=== PATIENT | female | born 1965 | race Caucasian/White ===

== ENCOUNTER 2016-02-27 12:01 | Emergency (ER) | payer SELFPAY ==
[2016-02-27 12:37] LABS: ABSOLUTE BASOPHILS # (AUTO) 0.1 10^3/uL (0.0-0.2); ABSOLUTE EOSINOPHILS # (AUTO) 0.1 10^3/uL (0.0-0.6); ABSOLUTE LYMPHOCYTES (AUTO) 3.3 10^3/uL (0.5-4.7); ABSOLUTE MONOCYTES (AUTO) 0.6 10^3/uL (0.1-1.4); ABSOLUTE NEUT (AUTO) 7.6 10^3/uL (1.7-8.2); BASOPHILS % (AUTO) 0.5 % (0-2); EOSINOPHILS % (AUTO) 0.8 % (0-6); HEMATOCRIT 42.2 % (36.0-47.0); HEMOGLOBIN 14.5 g/dL (12.0-15.5); HGB HCT DIFFERENCE 1.3; LYMPHOCYTES % (AUTO) 28.3 % (13-45); MEAN CORPUSCULAR HEMOGLOBIN 30.1 pg (27.0-33.4); MEAN CORPUSCULAR HGB CONC 34.3 g/dL (32.0-36.0); MEAN CORPUSCULAR VOLUME 88 fl (80-97); MONOCYTES % (AUTO) 4.9 % (3-13); RED BLOOD COUNT 4.81 10^6/uL (3.72-5.28); RED CELL DISTRIBUTION WIDTH 12.8 % (11.5-14.0); SEGMENTED NEUTROPHILS % (AUTO) 65.5 % (42-78); WHITE BLOOD COUNT 11.6 10^3/uL (4.0-10.5)
[2016-02-27 12:59] LABS: ALANINE AMINOTRANSFERASE 32 U/L (9-52); ALBUMIN 3.8 g/dL (3.5-5.0); ALKALINE PHOSPHATASE 90 U/L (38-126); ANION GAP 14 (5-19); ASPARTATE AMINO TRANSFERASE 19 U/L (14-36); BILIRUBIN,TOTAL 0.6 mg/dL (0.2-1.3); BLOOD UREA NITROGEN 7 mg/dL (7-20); CALCIUM 9.3 mg/dL (8.4-10.2); CARBON DIOXIDE 18 mmol/L (22-30); CHLORIDE 107 mmol/L (98-107); CREATININE RESULT 0.78 mg/dL (0.52-1.25); GLUCOSE 119 mg/dL (75-110); POTASSIUM 4.1 mmol/L (3.6-5.0); SODIUM 138.7 mmol/L (137-145); TOTAL PROTEIN 7.2 g/dL (6.3-8.2)
[2016-02-27 13:05] LABS: ALCOHOL < 10 mg/dL (NONE DETECTED)
--- NOTE | 2016-02-27 13:13 | EKG REPORT ---
SEVERITY:- NORMAL ECG - SINUS RHYTHM : Confirmed by: Marino Peters 27-Feb-2016 13:12:54
[2016-02-27 15:02] LABS: APPEARANCE,URINE SLIGHTLY HAZY; BACTERIA,URINE 2+ /HPF; BILIRUBIN,URINE NEGATIVE (NEGATIVE); GLUCOSE, URINE NEGATIVE (NEGATIVE); KETONES,URINE 25 mg/dL (NEGATIVE); LEUKOCYTE ESTERASE,URINE NEGATIVE (NEGATIVE); NITRITE,URINE NEGATIVE (NEGATIVE); PROTEIN,URINE 100 mg/dL (NEGATIVE); RBC,URINE 0-1 /HPF; URINE SPECIFIC GRAVITY 1.019; UROBILINOGEN,URINE NEGATIVE mg/dL (<2.0)
[2016-02-27 15:16] LABS: URINE BARBITURATES SCREEN NEGATIVE; URINE METHADONE SCREEN NEGATIVE; URINE PHENCYCLIDINE SCREEN NEGATIVE
[2016-02-27] MEDS ORDERED: LORAZEPAM INJ 2 MG/1 ML VIAL IV ONE (17:27)
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
[2016-02-27] MEDS: BUSPIRONE HCL 10 MG TABLET PO SCH (22:30)
[2016-02-28] MEDS ORDERED: LORAZEPAM 0.5 MG TABLET PO ONE (06:16)
[2016-02-28] MEDS: GABAPENTIN 300 MG CAPSULE PO SCH ×3 (09:11→17:25)
[2016-02-28] MEDS: LEVETIRACETAM 500 MG TABLET PO SCH ×2 (09:11→17:25)
--- NOTE | 2016-02-28 16:28 | ER Document Report ---
Doctor's Note Notes: 02/28/16 16:24 Rounds: Chart reviewed and patient interviewed. Being evaluated for BiPolar disorder and suicidal ideation. Vital signs have been normal except for a slightly low blood pressure of 99/61 and 106/76. Not tachycardic. Labs stable , + marijuana on UDS, WBC 11,600. Patient had ultrasound of breast mass and looks like cancer. Patient aware. Trying to get set up for biopsy and follow up care. Will remain overnight for stabilization of meds. Patient appears to be medically stable for transfer or discharge. Priti Mark MD
[2016-02-28] MEDS: BUSPIRONE HCL 10 MG TABLET PO SCH (21:52)
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
--- NOTE | 2016-02-29 08:57 | PSYCHOLOGICAL NOTE ---
Psych Note - Psych Note Psych Note: Clinician conducted check in with patient. Patient states that she is feeling better. Patient demonstrates interest in her medical care by discussing upcoming appointment scheduled for today at noon. She is able to communicate possible anxiety about addressing the lump found during her mammogram in July. Patient has put off addressing the findings however will be addressing them today. Patient denies suicidal homicidal ideation, and feels safe to go home. 296.90 Unspecified bipolar and related disorder, per history Impression\plan: Patient is recommended for recent of IVC and is considered psychiatrically cleared for discharge. Patient denies suicidal and homicidal ideation. Patient is established client of [facility] and has an appointment on the . Patient has follow-up appointment today at noon at the care clinic to address concerns identified in a July mammogram. Patient is psychiatrically cleared for discharge attending physician is in agreement with recommendations and disposition.
[2016-02-29] MEDS: LEVETIRACETAM 500 MG TABLET PO SCH (09:44)
[2016-02-29] MEDS: GABAPENTIN 300 MG CAPSULE PO SCH (09:44)
[2016-02-29 11:55] VITALS: BP 120/76
--- NOTE | 2016-02-29 12:02 | ER Document Report ---
Doctor's Note Notes: 02/29/16 12:00 Rounds: Chart reviewed and patient interviewed. Vital signs have remained stable with her blood pressure now in the low 100s systolic. Other vital signs are normal. No new labs to report. Patient is feeling much better and feels ready to go home. She has an appointment for follow-up at [facility] on March 05. I 'm writing her prescriptions for Neurontin, BuSpar, and Keppra for 5 days. She has an appointment at noon today At [facility] to arrange for further investigation and care of what looks like a likely cancer of the breast. Patient is aware of this likely diagnosis and the need for her to follow-up as recommended. She is being discharged stable with her . Priti Mark M.D.
== END 2016-02-29 11:55 | disposition home or self-care (01) ==
LOC: ER 12:01
DX: N63 Unspecified lump in breast (principal); F31.9 Bipolar disorder, unspecified; R45.851 Suicidal ideations; F17.210 Nicotine dependence, cigarettes, uncomplicated; E78.00 Pure hypercholesterolemia, unspecified
CPT/HCPCS: 93005; 99285; 96374; 36415; 80307 ×4; 84703; 85025; 80053; 81001; 76641; 70460; 93010; J2060

== ENCOUNTER → 2016-03-13 | Outpatient (CLI) | payer SELFPAY | LOC: RAD 06:45 | PROVIDERS: ATTEND Surgery | DX: C50.911 Malignant neoplasm of unspecified site of right female breast (principal) | CPT/HCPCS: A9576; C8906; 77059 ==

== ENCOUNTER → 2016-03-19 | Outpatient (CLI) | payer SELFPAY ==
--- NOTE | 2016-03-19 17:20 | WOMENS IMAGING REPORT ---
EXAM DESCRIPTION: BILAT DIAGNOSTIC MAMMO W/CAD COMPLETED DATE/TIME: 03/19/2016 9:09 am REASON FOR STUDY: C50.911 C50.911 MALIGNANT NEOPLASM OF UNSP SITE OF RIGHT FEMALE [place] COMPARISON: Bilateral breast MRI 03/13/2016 Right breast ultrasound 02/27/2016 Bilateral screening mammogram 07/31/2015 TECHNIQUE: Standard craniocaudal and mediolateral oblique views of each breast recorded using digita l acquisition. Additional right breast compression magnification views of the mass in the right breast 6 o'clock pos ition. LIMITATIONS: None. FINDINGS: RIGHT BREAST MASSES: There is a known malignant 1.4 cm mass in the right breast 6 o'clock position. On today's ex am, spiculated margins and architectural distortion are again seen. There is a biopsy clip in the vt ss. CALCIFICATIONS: No new or suspicious calcifications. ARCHITECTURAL DISTORTION: None. DEVELOPING DENSITY: None. ASYMMETRY: None noted. OTHER: No other significant findings. LEFT BREAST MASSES: No suspicious masses. CALCIFICATIONS: No new or suspicious calcifications. ARCHITECTURAL DISTORTION: None. DEVELOPING DENSITY: None. ASYMMETRY: None noted. OTHER: No other significant finding. Read with the assistance of CAD: .[facility] - R2 Cenova Version 1.3 .[facility] - R2 Cenova Version 1.3 .[facility] - R2 Cenova Version 2.4 .[facility] - R2 Cenova Version 2.4 .[facility] - R2 Clinical Support Associate Version 9.2 BREAST DENSITY: b. There are scattered areas of fibroglandular density. BIRAD: 6 Known biopsy-proven malignancy. Appropriate action should be taken. RECOMMENDATION: RECOMMENDED FOLLOW UP: As per surgeon SPECIFIC INTERVENTION/IMAGING/CONSULTATION RECOMMENDED:No additional intervention/ imaging/consultati on needed at this time. COMMUNICATION:The negative/benign results were communicated to the patient. COMMENT: PATIENT NOTIFIED BY LETTER. The [employer] (ACR) has developed recommendations for screening MRI of the breast s in certain patient populations, to be used in conjunction with mammography. Breast MRI surveillanc e may be appropriate for women with more than 20% lifetime risk of developing breast cancer as deter mined by genetic testing, significant family history of the disease, or history of mantle radiation f or Hodgkins Disease. ACR Practice Guidelines 2008. TECHNICAL DOCUMENTATION: FINDING NUMBER: (1) ASSESSMENT: (1) JOB ID: [id number] [employer]- All Rights Reserved
== END ==
LOC: WI 08:38
PROVIDERS: ATTEND Surgery
DX: C50.911 Malignant neoplasm of unspecified site of right female breast (principal)
CPT/HCPCS: 77066; G0204

== ENCOUNTER 2016-04-09 08:19 | Day surgery (SDC) | payer SELFPAY ==
[2016-04-02 12:45] LABS: HEMATOCRIT 43.1 % (36.0-47.0); HEMOGLOBIN 14.7 g/dL (12.0-15.5); MEAN CORPUSCULAR HEMOGLOBIN 30.6 pg (27.0-33.4); MEAN CORPUSCULAR VOLUME 90 fl (80-97); RED CELL DISTRIBUTION WIDTH 13.4 % (11.5-14.0); WHITE BLOOD COUNT 10.4 10^3/uL (4.0-10.5)
[2016-04-02 13:09] LABS: ANION GAP 15 (5-19); BLOOD UREA NITROGEN 14 mg/dL (7-20); CARBON DIOXIDE 23 mmol/L (22-30); CHLORIDE 106 mmol/L (98-107); CREATININE RESULT 0.81 mg/dL (0.52-1.25); GLUCOSE 117 mg/dL (75-110); POTASSIUM 4.5 mmol/L (3.6-5.0); SODIUM 143.9 mmol/L (137-145)
[~2016-04-09 08:19] MED LIST: LACTATED RINGERS 1000 ML IV PRN; LIDOCAINE 0.5% INJ-PF (5 MG/ML) 50 ML SDV SUBCUT PRN; LIDOCAINE 4% TRANSPARENT DRESSING 5 GM KIT TP PRN; VANCOMYCIN HCL 1,000 MG in DEXTROSE 5%-WATER 250 ML IV PRN
[2016-04-09] MEDS ORDERED: LIDOCAINE 2% INJ-PF (20 MG/ML) 10 ML AMPUL ONE ×2 (10:27→10:40)
[2016-04-09] MEDS ORDERED: METOCLOPRAMIDE HCL INJ/PF 10 MG/2 ML SDV ONE ×2 (10:27→10:40)
[2016-04-09] MEDS ORDERED: GLYCOPYRROLATE INJ 0.4 MG/2 ML VIAL ONE ×2 (10:27→10:40)
[2016-04-09] MEDS ORDERED: SUCCINYLCHOLINE CHLORIDE INJ 200 MG/10 ML VIAL ONE ×3 (10:27→10:40)
[2016-04-09] MEDS ORDERED: ONDANSETRON HCL INJ/PF 4 MG/2 ML SDV ONE ×2 (10:27→10:40)
[2016-04-09] MEDS ORDERED: ROCURONIUM BROMIDE INJ 50 MG/5 ML VIAL IV ONE (10:40)
[2016-04-09] MEDS ORDERED: METHYLENE BLUE INJ/PF 10 MG/1 ML SDV ONE (12:30)
[2016-04-09] MEDS ORDERED: BUPIVACAINE HCL 0.25 % INJ/PF (2.5 MG/1 ML) 30 ML VIAL ONE (12:30)
[2016-04-09] MEDS ORDERED: MIDAZOLAM 2 MG/2 ML INJ ONE (13:45)
[2016-04-09] MEDS ORDERED: FENTANYL CITRATE INJ/PF 250 MCG/5 ML AMPULE ONE (13:45)
[2016-04-09] MEDS ORDERED: MORPHINE SULFATE 10 MG/ML INJ ONE (13:46)
[2016-04-09] MEDS ORDERED: PROPOFOL INJ 200 MG/20 ML VIAL IV ONE (13:46)
[2016-04-09] MEDS ORDERED: ACETAMINOPHEN 100 ML IV ONE (13:46)
[2016-04-09] MEDS ORDERED: MORPHINE SULFATE 10 MG/ML INJ IV PRN (15:29)
[2016-04-09] MEDS ORDERED: PROMETHAZINE HCL INJ 25 MG/1 ML VIAL IV PRN ×2 (15:29)
[2016-04-09] MEDS ORDERED: DIPHENHYDRAMINE HCL 50 MG/ML VIAL IV PRN (15:29)
[2016-04-09] MEDS ORDERED: MEPERIDINE HCL/PF INJ 25 MG/1 ML DISP.SYRIN IV PRN (15:29)
[2016-04-09] MEDS ORDERED: FENTANYL CITRATE INJ/PF 100 MCG/2 ML AMPUL IV PRN ×3 (15:29)
[2016-04-09] MEDS ORDERED: OXYCODONE-ACETAMINOPHEN 5-325 MG TABLET PO PRN ×2 (15:29)
--- NOTE | 2016-04-09 16:42 | Operative Report ---
Operative Report DATE OF SURGERY: 04/09/16 PREOPERATIVE DIAGNOSIS: Right breast cancer POSTOPERATIVE DIAGNOSIS: Right breast cancer OPERATION: Right axillary sentinel node biopsy, injection of blue dye for identification of right axillary sentinel node, right breast wide local excision for malignancy. SURGEON: CAPRICE CHILDERS ANESTHESIA: GA TISSUE REMOVED OR ALTERED: Right axillary sentinel nodes 3. Right breast wide local excision COMPLICATIONS: None ESTIMATED BLOOD LOSS: 100 mL INTRAOPERATIVE FINDINGS: One hot and blue axillary sentinel node. One semi-hot and semi-blue axillary sentinel node. One semi-hot non-blue axillary sentinel node. All nodes negative by touch prep. 2 cm mass at the 6 o'clock position of the patient's right breast. PROCEDURE: Informed consent was obtained. Patient was brought to the operating room placed on the operating table in supine position after saturation induction of general anesthesia patient's right breast was prepped and the 3 mL of blue dye was injected at the periareolar location of the patient's right breast and breast massage was performed for 5 minutes. Prior to arrival to the operating room patient had the radionucleotide injection for identification of sentinel node. Patient's right breast and axilla were prepped and draped in usual sterile fashion. A transverse incision was made at the axillary hairline and dissection was carried down entering the true axilla. Using combination of visualization and the neoprobe 3 nodes were identified. The first node appeared the semi-hot and semi-blue with an in vivo count of 1662 and ex vivo count of 786. The second node which appeared extremely small had an ex vivo count of 3332 and it was not blue. The last node was hot and blue with an in vivo count of 83,089 and ex vivo count of 76,944. After this node was harvested the background count in the axilla was only 90. Palpation revealed no enlarged nodes of the third than the third sentinel node that was hot and blue and was enlarged. All of these nodes were submitted to pathology touch prep was negative for malignancy. Hemostasis appeared excellent. The wound was closed at the end of the case using deep dermal Vicryl sutures followed by running subcuticular Prolene pullout suture. Instrument and gloves were changed. At the infra areolar region of the patient' s right mid breast, a narrow ellipse of skin was taken encompassing prior biopsy skin scar with the underlying mass at the 6 o'clock position. Wide local excision was performed with the attempt at least 2 cm margins circumferentially around the the approximately 2 cm mass. The specimen was oriented with a short stitch marking the superior border long stitch marking the lateral border. Hemostasis was achieved with electrocautery. Hemostasis appeared excellent. Wound was closed with deep dermal interrupted Vicryl sutures followed by running subcuticular Prolene pullout suture. Marcaine was injected at the operative sites patient tolerated procedure well with no apparent complications and was taken to the recovery area in stable condition.
[2016-04-09] MEDS ORDERED: ONDANSETRON HCL INJ/PF 4 MG/2 ML SDV IV PRN (16:43)
[2016-04-09] MEDS ORDERED: DEXTROSE 5%-1/2 NORMAL SALINE 1,000 ML IV PRN (16:43)
[2016-04-09] MEDS ORDERED: DIPHENHYDRAMINE HCL 25 MG CAPSULE PO PRN (16:46)
[2016-04-09] MEDS ORDERED: GABAPENTIN 300 MG CAPSULE PO SCH (18:00)
[2016-04-09] MEDS ORDERED: LEVETIRACETAM 500 MG TABLET PO SCH (18:00)
[2016-04-09] MEDS ORDERED: INFLUENZA ADLT QUAD (36MOS+) 2016-17 VAC 0.5 ML SYR IM PRN (18:44)
[2016-04-09] MEDS ORDERED: BUSPIRONE HCL 10 MG TABLET PO SCH (22:00)
[2016-04-10] MEDS: OXYCODONE-ACETAMINOPHEN 5-325 MG TABLET PO PRN ×2 (00:46→08:32)
--- NOTE | 2016-04-10 09:19 | PDOC DISCHARGE SUMMARY ---
Discharge Summary (SDC) - Discharge Final Diagnosis: Right breast cancer Date of Surgery: 04/09/16 Discharge Date: 04/10/16 Condition: Good Treatment or Instructions: Wide local excision of breast cancer, right axillary sentinel node biopsy. May discharge the patient home. Follow-up with me in 1 week. May shower tomorrow night. Keep Steri-Strips on. Stay active but avoid strenuous activity. Prescriptions: Oxycodone HCl/Acetaminophen [Percocet 5-325 mg Tablet] 1 tab PO ASDIR PRN #30 tablet PRN Reason: Discharge Diet: As Tolerated Discharge Activity: Activity As Tolerated - Stay active but avoid strenuous activity. Report the Following to Your Physician Immediately: Fever over 101 Degrees, Unusual Bleeding, Redness
--- NOTE | 2016-04-10 09:21 | PDOC PROGRESS REPORT ---
Subjective Progress Note for:: 04/10/16 Subjective:: Feels okay. Some pain. Physical Exam Vital Signs: Temp Pulse Resp BP Pulse Ox 97.9 F 71 19 116/59 L 100 04/10/16 08:16 04/10/16 08:16 04/10/16 08:16 04/10/16 08:16 04/10/16 08:16 Intake & Output 04/09/16 04/10/16 04/11/16 06:59 06:59 06:59 Intake Total 2800 Output Total 19 Balance 2781 Weight 97.7 kg General appearance: PRESENT: no acute distress Respiratory exam: PRESENT: clear to auscultation deb, other - Breast wounds are clean dry and intact. No swelling no bruising. No erythema, no right arm swelling Cardiovascular exam: PRESENT: RRR Results Laboratory Results: 04/02/16 11:48 04/02/16 11:48 Impressions: Lymph Scan Nuclear Medicine 04/09/16 10:15 IMPRESSION: ADMINISTRATION OF RADIOPHARMACEUTICAL FOR SENTINEL LYMPH NODE EVALUATION. Assessment & Plan - Diagnosis (1) Breast cancer, right Is this a current diagnosis for this admission?: YesPlan: Status post wide local excision and sentinel node biopsy. Patient doing well. Will discharge patient home. Follow-up with me next week.
[2016-04-10 11:20] VITALS: BP 117/52
== END 2016-04-10 11:45 | disposition home or self-care (01) ==
LOC: OROUT 08:19 → 5 17:52 → OROUT 04-10 11:45
PROVIDERS: ATTEND Surgery
PROC: 07B50ZX Excision of Right Axillary Lymphatic, Open Approach, Diagnostic (ICD-10-PCS; 2016-04-09)
PROC: 0HBT0ZZ Excision of Right Breast, Open Approach (ICD-10-PCS; principal; 2016-04-09 12:45)
DX: C50.911 Malignant neoplasm of unspecified site of right female breast (principal); C77.3 Secondary and unspecified malignant neoplasm of axilla and upper limb lymph nodes; Z17.0 Estrogen receptor positive status [ER+]; M47.816 Spondylosis without myelopathy or radiculopathy, lumbar region; F31.30 Bipolar disorder, current episode depressed, mild or moderate severity, unspecified; F17.210 Nicotine dependence, cigarettes, uncomplicated; E66.9 Obesity, unspecified; Z88.0 Allergy status to penicillin; Z68.36 Body mass index [BMI] 36.0-36.9, adult; Z79.899 Other long term (current) drug therapy
CPT/HCPCS: 36415; 85027; 81025; 80048; 88342 ×2; 88307 ×2; 78195; 90686; 19301; 38500; 90471; A9520; J2250; J3490 ×3; J3010; Q9968; J2765; J2270; J0330; J2405; J7060; J2704; J3370; J0131; 1610

== ENCOUNTER → 2016-05-01 | Outpatient (CLI) | payer SELFPAY | LOC: OD 15:36 | PROVIDERS: ATTEND Surgery | DX: N64.89 Other specified disorders of breast (principal) | CPT/HCPCS: 87070; 87075; 87205 ==

== ENCOUNTER → 2016-06-13 | Outpatient (CLI) | payer SELFPAY ==
[2016-06-13 15:01] LABS: ABSOLUTE BASOPHILS # (AUTO) 0.1 10^3/uL (0.0-0.2); ABSOLUTE EOSINOPHILS # (AUTO) 0.1 10^3/uL (0.0-0.6); ABSOLUTE LYMPHOCYTES (AUTO) 4.3 10^3/uL (0.5-4.7); ABSOLUTE MONOCYTES (AUTO) 0.7 10^3/uL (0.1-1.4); BASOPHILS % (AUTO) 0.8 % (0-2); EOSINOPHILS % (AUTO) 1.2 % (0-6); HEMATOCRIT 39.7 % (36.0-47.0); HEMOGLOBIN 13.5 g/dL (12.0-15.5); HGB HCT DIFFERENCE 0.8; LYMPHOCYTES % (AUTO) 42.3 % (13-45); MEAN CORPUSCULAR HEMOGLOBIN 30.7 pg (27.0-33.4); MEAN CORPUSCULAR HGB CONC 34.1 g/dL (32.0-36.0); MEAN CORPUSCULAR VOLUME 90 fl (80-97); MONOCYTES % (AUTO) 6.4 % (3-13); RED BLOOD COUNT 4.41 10^6/uL (3.72-5.28); RED CELL DISTRIBUTION WIDTH 13.3 % (11.5-14.0); SEGMENTED NEUTROPHILS % (AUTO) 49.3 % (42-78); WHITE BLOOD COUNT 10.1 10^3/uL (4.0-10.5)
[2016-06-13 15:18] LABS: ALANINE AMINOTRANSFERASE 28 U/L (9-52); ALBUMIN 4.3 g/dL (3.5-5.0); ALKALINE PHOSPHATASE 63 U/L (38-126); ASPARTATE AMINO TRANSFERASE 16 U/L (14-36); BILIRUBIN,DIRECT 0.4 mg/dL (0.0-0.4); BILIRUBIN,TOTAL 0.5 mg/dL (0.2-1.3); TOTAL PROTEIN 7.4 g/dL (6.3-8.2)
== END ==
LOC: OD 13:59
PROVIDERS: ATTEND Radiology Radiation Oncology
DX: C50.511 Malignant neoplasm of lower-outer quadrant of right female breast (principal); Z79.899 Other long term (current) drug therapy; Z17.0 Estrogen receptor positive status [ER+]
CPT/HCPCS: 36415; 80076; 85025

== ENCOUNTER 2016-06-28 09:19 | Emergency (ER) | payer SELFPAY ==
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
[2016-06-28 11:24] LABS: APPEARANCE,URINE CLEAR; BILIRUBIN,URINE NEGATIVE (NEGATIVE); GLUCOSE, URINE NEGATIVE (NEGATIVE); KETONES,URINE NEGATIVE (NEGATIVE); LEUKOCYTE ESTERASE,URINE NEGATIVE (NEGATIVE); NITRITE,URINE NEGATIVE (NEGATIVE); PROTEIN,URINE NEGATIVE (NEGATIVE); URINE SPECIFIC GRAVITY 1.018; UROBILINOGEN,URINE NEGATIVE mg/dL (<2.0)
[2016-06-28] MEDS ORDERED: IBUPROFEN 800 MG TABLET PO ONE (11:39)
[2016-06-28 12:17] VITALS: BP 120/77
== END 2016-06-28 12:15 | disposition home or self-care (01) ==
LOC: ER 09:19
DX: S90.01XA Contusion of right ankle, initial encounter (principal); R35.0 Frequency of micturition; R39.15 Urgency of urination; R10.9 Unspecified abdominal pain; R42 Dizziness and giddiness; W20.8XXA Other cause of strike by thrown, projected or falling object, initial encounter; Z88.0 Allergy status to penicillin; E78.00 Pure hypercholesterolemia, unspecified
CPT/HCPCS: 81001; 99283

== ENCOUNTER 2016-06-28 12:42 | Emergency (ER) | payer SELFPAY ==
--- NOTE | 2016-06-28 12:57 | ER Document Report ---
ED General - General Stated Complaint: SUICIDAL IDEATION Notes: Patient is a 50-year-old female with past medical history of prior suicidal ideation and depression who presented originally today for complaints of left ankle pain. She became very agitated when her specific request for Percocet 10 mg tablets was not filled and began threatening to kill herself. Patient continues to state that she is going to commit suicide. She does not have a specific plan. Denies homicidal ideation. She does note that she has a chronic history of bipolar disorder although admits she is not currently on any treatment for this. She has been evaluated in the past for suicidal ideations. She was reevaluated for her acute medical complaint of left ankle pain and x- ray was noted to be normal. She denies any additional ongoing acute medical concerns. TRAVEL OUTSIDE OF THE [place] IN LAST 30 DAYS: No - Related Data Allergies/Adverse Reactions: Penicillins Allergy (Unknown, Verified 03/22/15 11:52) Past Medical History - General Information source: Patient - Social History Smoking Status: Current Every Day Smoker Frequency of alcohol use: None Drug Abuse: Prescription drugs Lives with: Spouse/Significant other Family History: Reviewed & Not Pertinent - Past Medical History Cardiac Medical History: Reports: Hx Hypercholesterolemia Denies: Hx Coronary Artery Disease, Hx Heart Attack, Hx Hypertension Pulmonary Medical History: Reports: Hx Bronchitis - UNSURE Denies: Hx Asthma, Hx COPD - SOB WHEN LYING ON SIDE AND BENDING OVER, HAS A SMOKERS COUGH, Hx Pneumonia, Hx Tuberculosis Neurological Medical History: Denies: Hx Cerebrovascular Accident, Hx Seizures Renal/ Medical History: Reports: Hx Ovarian Cysts - Right-sided. Denies: Hx Peritoneal Dialysis GI Medical History: Reports: Hx Gastroesophageal Reflux Disease Musculoskeltal Medical History: Denies Hx Arthritis Psychiatric Medical History: Reports: Hx Anxiety, Hx Bipolar Disorder, Hx Depression Past Surgical History: Reports: Hx Gynecologic Surgery - ovarian cyst removal, Hx Orthopedic Surgery - back surgery - Immunizations Hx Diphtheria, Pertussis, Tetanus Vaccination: - UNSURE Review of Systems - Review of Systems Notes: Constitutional: Negative for fever. HENT: Negative for sore throat. Eyes: Negative for visual changes. Cardiovascular: Negative for chest pain. Respiratory: Negative for shortness of breath. Gastrointestinal: Negative for abdominal pain, vomiting or diarrhea. Genitourinary: Negative for dysuria. Musculoskeletal: Left ankle pain Skin: Negative for rash. Neurological: Negative for headaches, weakness or numbness. 10 point ROS negative except as marked above and in HPI. Physical Exam - Vital signs Interpretation: Normal Notes: PHYSICAL EXAMINATION: GENERAL: Well-appearing, well-nourished and in no acute distress. HEAD: Atraumatic, normocephalic. EYES: Pupils equal round and reactive to light, extraocular movements intact, sclera anicteric, conjunctiva are normal. ENT: nares patent, oropharynx clear without exudates. Moist mucous membranes. NECK: Normal range of motion, supple without lymphadenopathy LUNGS: Breath sounds clear to auscultation bilaterally and equal. No wheezes rales or rhonchi. HEART: Regular rate and rhythm without murmurs ABDOMEN: Soft, nontender, normoactive bowel sounds. No guarding, no rebound. No masses appreciated. EXTREMITIES: Normal range of motion, no pitting or edema. No cyanosis. NEUROLOGICAL: No focal neurological deficits. Moves all extremities spontaneously and on command. PSYCH: Emotional, tearful. Appears anxious SKIN: Warm, Dry, normal turgor, no rashes or lesions noted. Course - Re-evaluation Re-evalutation: 06/28/16 12:55 Patient continues to threaten that she is going to kill herself although she does not have a specific plan. It appears that patient is having increasing anxiety and potentially uncontrolled underlying bipolar disorder that may be associated with her outbursts here in the emergency department today. However given that she continues to state that she is planning to harm or self she has been placed on involuntary commitment and will be evaluated by psychiatry. Medical screening laboratories have been sent and a medical screening exam is unremarkable 06/28/16 15:17 Medical screening laboratories are unremarkable with exception of a positive THC screen which I do not believe is clinically significant to her presentation today. She is cleared for evaluation by psychiatry. - Laboratory Result Diagrams: 06/28/16 13:35 06/28/16 13:35 Laboratory results interpreted by me: 06/28/16 13:35 Chloride 108 H Carbon Dioxide 21 L Salicylates < 1.0 L Acetaminophen < 10 L Discharge - Discharge Clinical Impression: Suicidal ideation Condition: Stable Referrals: [facility] [Primary Care Provider] - Follow up as needed
[2016-06-28 13:51] LABS: ABSOLUTE BASOPHILS # (AUTO) 0.1 10^3/uL (0.0-0.2); ABSOLUTE EOSINOPHILS # (AUTO) 0.1 10^3/uL (0.0-0.6); ABSOLUTE LYMPHOCYTES (AUTO) 3.1 10^3/uL (0.5-4.7); ABSOLUTE MONOCYTES (AUTO) 0.6 10^3/uL (0.1-1.4); ABSOLUTE NEUT (AUTO) 5.2 10^3/uL (1.7-8.2); BASOPHILS % (AUTO) 0.7 % (0-2); HEMOGLOBIN 13.5 g/dL (12.0-15.5); HGB HCT DIFFERENCE -0.5; LYMPHOCYTES % (AUTO) 34.5 % (13-45); MEAN CORPUSCULAR HEMOGLOBIN 30.2 pg (27.0-33.4); MEAN CORPUSCULAR VOLUME 92 fl (80-97); MONOCYTES % (AUTO) 6.9 % (3-13); RED BLOOD COUNT 4.48 10^6/uL (3.72-5.28); RED CELL DISTRIBUTION WIDTH 12.9 % (11.5-14.0); SEGMENTED NEUTROPHILS % (AUTO) 56.9 % (42-78); WHITE BLOOD COUNT 9.1 10^3/uL (4.0-10.5)
[2016-06-28 13:54] LABS: APPEARANCE,URINE CLEAR; BILIRUBIN,URINE NEGATIVE (NEGATIVE); GLUCOSE, URINE NEGATIVE (NEGATIVE); KETONES,URINE NEGATIVE (NEGATIVE); LEUKOCYTE ESTERASE,URINE NEGATIVE (NEGATIVE); NITRITE,URINE NEGATIVE (NEGATIVE); PROTEIN,URINE NEGATIVE (NEGATIVE); URINE SPECIFIC GRAVITY 1.009; UROBILINOGEN,URINE NEGATIVE mg/dL (<2.0)
[2016-06-28 14:09] LABS: URINE BARBITURATES SCREEN NEGATIVE; URINE METHADONE SCREEN NEGATIVE; URINE OPIATES LOW NEGATIVE; URINE PHENCYCLIDINE SCREEN NEGATIVE
[2016-06-28 14:11] LABS: ALANINE AMINOTRANSFERASE 26 U/L (9-52); ALBUMIN 3.9 g/dL (3.5-5.0); ALKALINE PHOSPHATASE 74 U/L (38-126); ANION GAP 14 (5-19); ASPARTATE AMINO TRANSFERASE 15 U/L (14-36); BILIRUBIN,DIRECT 0.3 mg/dL (0.0-0.4); BILIRUBIN,TOTAL 0.3 mg/dL (0.2-1.3); BLOOD UREA NITROGEN 10 mg/dL (7-20); CALCIUM 9.6 mg/dL (8.4-10.2); CARBON DIOXIDE 21 mmol/L (22-30); CHLORIDE 108 mmol/L (98-107); CREATININE RESULT 0.75 mg/dL (0.52-1.25); GLUCOSE 108 mg/dL (75-110); POTASSIUM 4.2 mmol/L (3.6-5.0); SODIUM 143.2 mmol/L (137-145)
[2016-06-28 14:12] LABS: ALCOHOL < 10 mg/dL (NONE DETECTED)
--- NOTE | 2016-06-28 16:26 | PSYCHOLOGICAL NOTE ---
Psych Note - Psych Note Psych Note: Patient is a 50-year-old female with past medical history of prior suicidal ideation and depression who presented originally today for complaints of left ankle pain. She became very agitated when her specific request for Percocet 10 mg tablets was not filled and began threatening to kill herself. Patient continues to state that she is going to commit suicide. She does not have a specific plan. Denies homicidal ideation. She does note that she has a chronic history of bipolar disorder although admits she is not currently on any treatment for this. She has been evaluated in the past for suicidal ideations. She was reevaluated for her acute medical complaint of left ankle pain and x- ray was noted to be normal. She denies any additional ongoing acute medical concerns. Patient states that she has looking into her prescriptions of Keppra and Gabapentin and she is not on anything for her anxiety, depression, and bipolar. She states she has been forgetting things. Clinician conducted psychoeducation. Patient then stated she needed something for anxiety, when it was explained that an anxiety medications provided by [facility] are normally nonaddictive but the clinician is unable to prescribe any medications because it is outside of her scope of practice. Patient states she has Buspar at home but it is not strong enough. Patient states that [facility] will not change her medication even thought she has asked. Patient was urged to follow up with outpatient services for any concerns for mental health and her current medications. Patient disclosed that he had an "episode" and she was supposed to get a prescription but did not get it. Patient is alert and orientated to person, place, time and circumstance. Mood is euthymic with congruent affect. Patient denies suicidal and homicidal ideation. Patient denies auditory and visual hallucinations; patient is not demonstrating behaviour what would be congruent to responding to internal stimuli. No delusions are noted. Thought process is organized and linear. conversational speech is within normal rate tone and prosody. Eye contact was well maintained. Intellectual abilities appear to be within average range. Attention and concentration is fair. Insight, judgment, and impulse control is fair. 296.90 Unspecified bipolar and related disorder, per history R/O Substance abuse Impression\\plan: Patient is considered psychiatrically cleared for discharge. Patient denies suicidal and homicidal ideation. Patient is established client of [facility]. Patient disclosed multiple concerns that are not acute and demonstrated behaviour congruent with secondary gain. Patient is recommended to follow up [facility] for mental health and a Neurologist with her concerns for memory loss. Patient is psychiatrically cleared for discharge attending physician is in agreement with recommendations and disposition.
[2016-06-28 17:33] VITALS: BP 131/84
--- NOTE | 2016-06-28 18:58 | EKG REPORT ---
SEVERITY:- NORMAL ECG - SINUS RHYTHM : Confirmed by: Erasto Orta MD 28-Jun-2016 18:57:40
== END 2016-06-28 17:34 | disposition home or self-care (01) ==
LOC: ER 12:42
DX: R45.851 Suicidal ideations (principal); F31.9 Bipolar disorder, unspecified; M25.572 Pain in left ankle and joints of left foot; F17.200 Nicotine dependence, unspecified, uncomplicated; F41.9 Anxiety disorder, unspecified; E78.00 Pure hypercholesterolemia, unspecified; Z88.0 Allergy status to penicillin
CPT/HCPCS: 36415; 80053; 80307; 81001; 84703; 85025; 93005; 93010; 99285

== ENCOUNTER → 2016-07-02 | Outpatient (CLI) | payer OTHER | LOC: RAD 10:32 | PROVIDERS: ATTEND Radiology Radiation Oncology | DX: C50.511 Malignant neoplasm of lower-outer quadrant of right female breast (principal); Z17.0 Estrogen receptor positive status [ER+] ==

== ENCOUNTER 2016-08-03 22:56 | Emergency (ER) | payer OTHER ==
[2016-08-04] MEDS ORDERED: DIPHENHYDRAMINE HCL 50 MG CAPSULE PO ONE (01:02)
[2016-08-04 01:13] LABS: APPEARANCE,URINE SLIGHTLY-CLOUDY; BILIRUBIN,URINE NEGATIVE (NEGATIVE); GLUCOSE, URINE NEGATIVE (NEGATIVE); KETONES,URINE NEGATIVE (NEGATIVE); LEUKOCYTE ESTERASE,URINE NEGATIVE (NEGATIVE); NITRITE,URINE NEGATIVE (NEGATIVE); PROTEIN,URINE NEGATIVE (NEGATIVE); URINE SPECIFIC GRAVITY 1.027; UROBILINOGEN,URINE NEGATIVE mg/dL (<2.0)
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
[2016-08-04 02:18] LABS: ABSOLUTE BASOPHILS # (AUTO) 0.1 10^3/uL (0.0-0.2); ABSOLUTE EOSINOPHILS # (AUTO) 0.1 10^3/uL (0.0-0.6); ABSOLUTE LYMPHOCYTES (AUTO) 2.6 10^3/uL (0.5-4.7); ABSOLUTE MONOCYTES (AUTO) 0.5 10^3/uL (0.1-1.4); ABSOLUTE NEUT (AUTO) 4.1 10^3/uL (1.7-8.2); ALANINE AMINOTRANSFERASE 29 U/L (9-52); ALBUMIN 3.6 g/dL (3.5-5.0); ALCOHOL < 10 mg/dL (NONE DETECTED); ALKALINE PHOSPHATASE 61 U/L (38-126); ANION GAP 11 (5-19); ASPARTATE AMINO TRANSFERASE 17 U/L (14-36); BASOPHILS % (AUTO) 0.9 % (0-2); BILIRUBIN,DIRECT 0.3 mg/dL (0.0-0.4); BILIRUBIN,TOTAL 0.3 mg/dL (0.2-1.3); BLOOD UREA NITROGEN 11 mg/dL (7-20); CALCIUM 8.7 mg/dL (8.4-10.2); CARBON DIOXIDE 24 mmol/L (22-30); CHLORIDE 108 mmol/L (98-107); CREATININE RESULT 0.81 mg/dL (0.52-1.25); EOSINOPHILS % (AUTO) 1.9 % (0-6); GLUCOSE 117 mg/dL (75-110); HEMATOCRIT 37.1 % (36.0-47.0); HEMOGLOBIN 12.4 g/dL (12.0-15.5); HGB HCT DIFFERENCE 0.1; LYMPHOCYTES % (AUTO) 35.6 % (13-45); MEAN CORPUSCULAR HEMOGLOBIN 30.4 pg (27.0-33.4); MEAN CORPUSCULAR HGB CONC 33.4 g/dL (32.0-36.0); MEAN CORPUSCULAR VOLUME 91 fl (80-97); MONOCYTES % (AUTO) 6.5 % (3-13); POTASSIUM 3.8 mmol/L (3.6-5.0); RED BLOOD COUNT 4.08 10^6/uL (3.72-5.28); RED CELL DISTRIBUTION WIDTH 13.4 % (11.5-14.0); SEGMENTED NEUTROPHILS % (AUTO) 55.1 % (42-78); SODIUM 142.7 mmol/L (137-145); TOTAL PROTEIN 6.8 g/dL (6.3-8.2); WHITE BLOOD COUNT 7.4 10^3/uL (4.0-10.5)
[2016-08-04 02:25] LABS: URINE BARBITURATES SCREEN NEGATIVE; URINE METHADONE SCREEN NEGATIVE; URINE OPIATES LOW NEGATIVE; URINE PHENCYCLIDINE SCREEN NEGATIVE
--- NOTE | 2016-08-04 12:03 | ER Document Report ---
Doctor's Note Notes: 08/04/16 11:53 Rounds: Chart reviewed. Patient interviewed. Patient says she still feeling suicidal. Has a history of bipolar disorder. Lab studies have all been essentially normal. She is positive for marijuana in her UDS. Vital signs were all normal. Incidental note: Patient had a right mastectomy and subsequent radiation therapy to the right breast. She has developed redness of the skin there on the right breast. This is a chronic problem and she has seen her surgeon, Dr. Nolasco, who has prescribed a medication for the redness of the skin, but they have not been able to fill the prescription yet. Sounds like it may be nystatin. I stressed the point that this is a chronic problem and not new and it is not different than it has been. Patient appears to be medically stable for transfer or discharge. Priti Mark MD
[2016-08-04] MEDS ORDERED: ACETAMINOPHEN 325 MG TABLET PO ONE (20:24)
--- NOTE | 2016-08-04 21:14 | ER Document Report ---
ED Psych Disorder / Suicide - General Mode of Arrival: Ambulatory Information source: Patient, Relative, [facility] Records TRAVEL OUTSIDE OF THE [place] IN LAST 30 DAYS: No - HPI Patient complains to provider of: Suicidal ideation, Other - Out of medications Onset: Other Onset was: Gradual Quality of pain: No pain Severity: None Pain Level: Denies Suicide Risk Factors: Bipolar, Substance abuse Normal mood: Yes Associated symptoms: Normal affect, Normal mood, Depressed Similar symptoms previously: Yes Recently seen / treated by doctor: No <HAL MCCOY - Last Filed: 08/04/16 20:38> <KAYLEY ADAIR - Last Filed: 08/04/16 21:28> - General Chief Complaint: Suicidal Ideation Stated Complaint: SUICIDAL IDEATION Time Seen by Provider: 08/04/16 16:14 - HPI Notes: Patient reported she has been off her medications for the past 3 weeks because [facility] told her the medications were no longer effective. Patient reported she usually takes Neurontin, Buspar and Trazadone but does not with to continue those medications. She reported she does not like [facility] because she is not a "group person." She reported she has suicidal ideation but no plan. She reported her last inpatient hospitalization as several years ago. She reported daily marijuana use of 1-2 joints per day and a past history of crack use. Patient reported a history of inpatient psychiatric hospitalizations and previous suicide attempts. Patient reported she would like to get back on her medications but wants something different. collaborated the Patient's information. Patient was alert and oriented to person, place, time, and situation. Mood was euthymic and affect was mood congruent. She reported suicidal ideation without plan or intent. She denied psychosis and no delusions were evident. Thought processes were linear, organized, and rational. Conversational speech was within normal limits for rate, tone, and prosody. Intellectual abilities were estimated within the average range. Attention and concentration was within normal limits. Insight, judgment, and impulse control was fair. 1. 296.51 (F31.31) Bipolar Disorder, Most Recent Episode Depressed, Impression / Plan: Patient is recommended for rescind of IVC. She has been off her medications for 3 weeks and indicated she is having suicidal ideation without plan. She agreed to returning to [facility] for continued medication management. stated he will assume supervision of the Patient and ensure she follows up with her provider. Patient provided education regarding medication management. (HAL MCCOY) - Related Data Allergies/Adverse Reactions: Penicillins Allergy (Unknown, Verified 03/22/15 11:52) Home Medications: Current Home Medications Tamoxifen Citrate 20 mg PO DAILY 08/04/16 [History] Past Medical History - General Information source: Patient - Social History Smoking Status: Unknown if Ever Smoked Frequency of alcohol use: None Drug Abuse: None Family History: Reviewed & Not Pertinent Patient has suicidal ideation: Yes Patient has homicidal ideation: Yes - Past Medical History Cardiac Medical History: Reports: Hx Hypercholesterolemia Denies: Hx Coronary Artery Disease, Hx Heart Attack, Hx Hypertension Pulmonary Medical History: Reports: Hx Bronchitis - UNSURE Denies: Hx Asthma, Hx COPD - SOB WHEN LYING ON SIDE AND BENDING OVER, HAS A SMOKERS COUGH, Hx Pneumonia, Hx Tuberculosis Neurological Medical History: Denies: Hx Cerebrovascular Accident, Hx Seizures Renal/ Medical History: Reports: Hx Ovarian Cysts - Right-sided. Denies: Hx Peritoneal Dialysis GI Medical History: Reports: Hx Gastroesophageal Reflux Disease Musculoskeltal Medical History: Denies Hx Arthritis Psychiatric Medical History: Reports: Hx Anxiety, Hx Bipolar Disorder, Hx Depression Past Surgical History: Reports: Hx Breast Surgery - left lumpectomy, Hx Gynecologic Surgery - ovarian cyst removal, Hx Orthopedic Surgery - back surgery - Immunizations Hx Diphtheria, Pertussis, Tetanus Vaccination: - UNSURE <HAL MCCOY - Last Filed: 08/04/16 20:38> Course - Laboratory Result Diagrams: 08/04/16 01:55 08/04/16 01:55 <HAL MCCOY - Last Filed: 08/04/16 20:38> - Laboratory Result Diagrams: 08/04/16 01:55 08/04/16 01:55 <KAYLEY ADAIR - Last Filed: 08/04/16 21:28> - Vital Signs Vital signs: Temp Pulse Resp BP Pulse Ox 97.7 F 65 16 111/67 97 08/04/16 09:13 08/04/16 09:13 08/04/16 09:13 08/04/16 09:13 08/04/16 09:13 - Laboratory Laboratory results interpreted by me: 08/04/16 08/04/16 00:30 01:55 Chloride 108 H Glucose 117 H Urine Ascorbic Acid 20 H Salicylates < 1.0 L Acetaminophen < 10 L Discharge <HAL MCCOY - Last Filed: 08/04/16 20:38> <KAYLEY ADAIR Yuko - Last Filed: 08/04/16 21:28> - Discharge Clinical Impression: Suicidal ideation, Bipolar 1 disorder, depressed, mild Condition: Stable Disposition: HOME, SELF-CARE Additional Instructions: Bipolar Disorder Bipolar disorder is also called manic-depressive disorder. Depression alternates with brain hyperactivity called chepe. Each phase lasts from several days to a few weeks. We don't know exactly what causes bipolar disorder , but it's treatable. During the "manic phase," you may feel elated and energetic. You may have racing thoughts, rapid speech, increased activity, and grandiose ideas. During this time, you may not realize how poor your judgment is. Inappropriate spending, drug abuse, excessive alcohol use, marriage problems, and irresponsible sexual behavior are common during the manic phase. During the "depressive phase," you might feel depressed, guilty, worthless , fatigued, and unable to concentrate. You might have thoughts of suicide. Good treatments are available for bipolar disorder. [place] is a classic drug for bipolar disorder, and is still often useful. If the manic phase is very mild, an antidepressant alone can be prescribed. If the manic phase is very severe, an antipsychotic medicine (such as Haldol) may be needed. The treatment must be matched to your symptoms, so it's important to work closely with your psychiatric care provider. Contact your physician, the hospital emergency center, crisis line, or your counsellor if you are losing control or having self-destructive thoughts. You are recommended to follow up with your provider, GORAN, this week to continue medication management and treatment. Prescriptions: Gabapentin [Neurontin] 600 mg PO BID 7 Days Levetiracetam [Keppra] 250 mg PO BID 7 Days Referrals: [facility] [Primary Care Provider] - Follow up as needed
[2016-08-04 21:39] VITALS: BP 120/70
--- NOTE | 2016-08-05 09:24 | EKG REPORT ---
SEVERITY:- NORMAL ECG - SINUS RHYTHM : Confirmed by: Marino Peters 05-Aug-2016 09:23:59
== END 2016-08-04 21:33 | disposition home or self-care (01) ==
LOC: ER 22:56
DX: F31.9 Bipolar disorder, unspecified (principal); R45.851 Suicidal ideations; L98.9 Disorder of the skin and subcutaneous tissue, unspecified; Z91.5 Personal history of self-harm; Z88.0 Allergy status to penicillin; Z85.3 Personal history of malignant neoplasm of breast
CPT/HCPCS: 36415; 80053; 80307; 81001; 85025; 93005; 93010; 99285

== ENCOUNTER → 2016-09-18 | Outpatient (CLI) | payer OTHER ==
--- NOTE | 2016-09-18 11:07 | WOMENS IMAGING REPORT ---
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 TECHNIQUE: Standard craniocaudal and mediolateral oblique images of the breast recorded with digital acquisition. Additional images include a true lateral view and compression magnification lateral and CC views. LIMITATIONS: None. FINDINGS: BREAST: right MASSES: No suspicious masses. CALCIFICATIONS: No new or suspicious calcifications. ARCHITECTURAL DISTORTION: Surgical changes in the inferior breast. DEVELOPING DENSITY: None. ASYMMETRY: None noted. OTHER: No other significant findings. Read with the assistance of CAD. .[facility] - R2 Cenova Version 1.3 .[facility] - R2 Cenova Version 1.3 .[facility] - R2 Cenova Version 2.4 .[facility] [place] [place] - R2 Cenova Version 2.4 .[facility] - R2 Sizing Machine Operator Version 9.2 IMPRESSION: Surgical changes in the inferior breast. No worrisome findings. BREAST DENSITY: b. There are scattered areas of fibroglandular density. BIRAD: 2 Benign findings. RECOMMENDATION: RECOMMENDED FOLLOW UP: Post lumpectomy protocol. COMMENT: The patient has been notified of the results by letter per SA requirements. Additional no tification policies are in place for contacting patient with suspicious or incomplete findings. Quality ID #[id number]: The [employer] recommends an annual screening mammogram for women aged 40 years or over. This facility utilizes a reminder system to ensure that all patients receive reminder letters, and/or direct phone calls for appointments. This includes reminders for routine scr eening mammograms, diagnostic mammograms, or other Breast Imaging Interventions when appropriate. Th is patient will be placed in the appropriate reminder system. The [employer] ([employer]) has developed recommendations for screening MRI of the breast s in certain patient populations, to be used in conjunction with mammography. Breast MRI surveillanc e may be appropriate for women with more than 20% lifetime risk of developing breast cancer as deter mined by genetic testing, significant family history of the disease, or history of mantle radiation f or Hodgkins Disease. [employer] Practice Guidelines 2008. TECHNICAL DOCUMENTATION: FINDING NUMBER: (1) ASSESSMENT: (1) JOB ID: [id number] [employer]- All Rights Reserved
== END ==
LOC: WI 08:43
PROVIDERS: ATTEND Radiology Radiation Oncology
DX: C50.511 Malignant neoplasm of lower-outer quadrant of right female breast (principal); Z17.0 Estrogen receptor positive status [ER+]
CPT/HCPCS: G0206-52

== ENCOUNTER 2016-10-15 15:14 | Emergency (ER) | payer OTHER ==
[2016-10-15] MEDS ORDERED: LORAZEPAM INJ 2 MG/1 ML VIAL IM ONE (15:28)
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
[2016-10-15 17:29] LABS: ABSOLUTE BASOPHILS # (AUTO) 0.1 10^3/uL (0.0-0.2); ABSOLUTE EOSINOPHILS # (AUTO) 0.1 10^3/uL (0.0-0.6); ABSOLUTE LYMPHOCYTES (AUTO) 1.8 10^3/uL (0.5-4.7); ABSOLUTE MONOCYTES (AUTO) 0.4 10^3/uL (0.1-1.4); ABSOLUTE NEUT (AUTO) 5.6 10^3/uL (1.7-8.2); BASOPHILS % (AUTO) 0.7 % (0-2); EOSINOPHILS % (AUTO) 1.1 % (0-6); HEMATOCRIT 37.4 % (36.0-47.0); HEMOGLOBIN 12.8 g/dL (12.0-15.5); LYMPHOCYTES % (AUTO) 22.1 % (13-45); MEAN CORPUSCULAR HEMOGLOBIN 31.5 pg (27.0-33.4); MEAN CORPUSCULAR HGB CONC 34.3 g/dL (32.0-36.0); MEAN CORPUSCULAR VOLUME 92 fl (80-97); MONOCYTES % (AUTO) 5.4 % (3-13); RED BLOOD COUNT 4.07 10^6/uL (3.72-5.28); RED CELL DISTRIBUTION WIDTH 12.9 % (11.5-14.0); SEGMENTED NEUTROPHILS % (AUTO) 70.7 % (42-78)
[2016-10-15 17:39] LABS: ALANINE AMINOTRANSFERASE 23 U/L (9-52); ALBUMIN 3.7 g/dL (3.5-5.0); ALCOHOL < 10 mg/dL (NONE DETECTED); ALKALINE PHOSPHATASE 60 U/L (38-126); ANION GAP 8 (5-19); ASPARTATE AMINO TRANSFERASE 18 U/L (14-36); BILIRUBIN,DIRECT 0.5 mg/dL (0.0-0.4); BILIRUBIN,TOTAL 0.5 mg/dL (0.2-1.3); BLOOD UREA NITROGEN 11 mg/dL (7-20); CALCIUM 8.7 mg/dL (8.4-10.2); CARBON DIOXIDE 23 mmol/L (22-30); CHLORIDE 109 mmol/L (98-107); GLUCOSE 105 mg/dL (75-110); POTASSIUM 3.7 mmol/L (3.6-5.0); SODIUM 139.7 mmol/L (137-145); TOTAL PROTEIN 6.8 g/dL (6.3-8.2)
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
[2016-10-15] MEDS ORDERED: BENZTROPINE MESYLATE 1 MG TABLET PO ONE (18:00)
[2016-10-15] MEDS ORDERED: OLANZAPINE 5 MG TAB.RAPDIS PO ONE (18:00)
[2016-10-15] MEDS ORDERED: HALOPERIDOL LACTATE INJ 5 MG/1 ML VIAL IM PRN (18:01)
[2016-10-15 19:17] LABS: APPEARANCE,URINE CLEAR; BILIRUBIN,URINE NEGATIVE (NEGATIVE); GLUCOSE, URINE NEGATIVE (NEGATIVE); KETONES,URINE NEGATIVE (NEGATIVE); LEUKOCYTE ESTERASE,URINE NEGATIVE (NEGATIVE); NITRITE,URINE NEGATIVE (NEGATIVE); PROTEIN,URINE NEGATIVE (NEGATIVE); URINE SPECIFIC GRAVITY 1.008; UROBILINOGEN,URINE NEGATIVE mg/dL (<2.0)
[2016-10-15 19:32] LABS: URINE BARBITURATES SCREEN NEGATIVE; URINE METHADONE SCREEN NEGATIVE; URINE OPIATES LOW NEGATIVE; URINE PHENCYCLIDINE SCREEN NEGATIVE
--- NOTE | 2016-10-15 21:02 | EKG REPORT ---
SEVERITY:- NORMAL ECG - SINUS RHYTHM : Confirmed by: Marino Peters 15-Oct-2016 21:02:25
--- NOTE | 2016-10-16 09:13 | ER Document Report ---
Doctor's Note Notes: 10/16/16 09:13 Patient is resting comfortably on her left side in the room. She is easily arousable. She denies any complaints or concerns at this time. She is awaiting disposition.
[2016-10-17 06:47] VITALS: BP 107/50
== END 2016-10-17 12:00 | disposition home or self-care (01) ==
LOC: ER 15:14
DX: F31.9 Bipolar disorder, unspecified (principal); R45.851 Suicidal ideations; Z91.14 Patient's other noncompliance with medication regimen; Z85.3 Personal history of malignant neoplasm of breast; Z91.5 Personal history of self-harm
CPT/HCPCS: 93005; 99285; 96372; 96374; 36415; 80307 ×4; 85025; 80053; 81001; 93010; J3490; J1630; J2060

== ENCOUNTER → 2016-12-09 | Outpatient (CLI) | payer OTHER ==
[2016-12-09 13:52] LABS: ABSOLUTE BASOPHILS # (AUTO) 0.1 10^3/uL (0.0-0.2); ABSOLUTE EOSINOPHILS # (AUTO) 0.1 10^3/uL (0.0-0.6); ABSOLUTE LYMPHOCYTES (AUTO) 2.4 10^3/uL (0.5-4.7); ABSOLUTE MONOCYTES (AUTO) 0.6 10^3/uL (0.1-1.4); ABSOLUTE NEUT (AUTO) 4.3 10^3/uL (1.7-8.2); BASOPHILS % (AUTO) 0.9 % (0-2); EOSINOPHILS % (AUTO) 1.6 % (0-6); HEMATOCRIT 37.4 % (36.0-47.0); HEMOGLOBIN 12.9 g/dL (12.0-15.5); HGB HCT DIFFERENCE 1.3; LYMPHOCYTES % (AUTO) 31.8 % (13-45); MEAN CORPUSCULAR HGB CONC 34.5 g/dL (32.0-36.0); MEAN CORPUSCULAR VOLUME 90 fl (80-97); MONOCYTES % (AUTO) 8.4 % (3-13); RED BLOOD COUNT 4.17 10^6/uL (3.72-5.28); RED CELL DISTRIBUTION WIDTH 12.7 % (11.5-14.0); SEGMENTED NEUTROPHILS % (AUTO) 57.3 % (42-78); WHITE BLOOD COUNT 7.5 10^3/uL (4.0-10.5)
[2016-12-09 13:52] LABS: APPEARANCE,URINE CLEAR; BILIRUBIN,URINE NEGATIVE (NEGATIVE); GLUCOSE, URINE NEGATIVE (NEGATIVE); KETONES,URINE NEGATIVE (NEGATIVE); LEUKOCYTE ESTERASE,URINE NEGATIVE (NEGATIVE); NITRITE,URINE NEGATIVE (NEGATIVE); PROTEIN,URINE NEGATIVE (NEGATIVE); URINE SPECIFIC GRAVITY 1.013; UROBILINOGEN,URINE NEGATIVE mg/dL (<2.0)
[2016-12-09 14:18] LABS: ALANINE AMINOTRANSFERASE 24 U/L (9-52); ALBUMIN 3.7 g/dL (3.5-5.0); ALKALINE PHOSPHATASE 64 U/L (38-126); ANION GAP 12 (5-19); ASPARTATE AMINO TRANSFERASE 16 U/L (14-36); BILIRUBIN,DIRECT 0.3 mg/dL (0.0-0.4); BILIRUBIN,TOTAL 0.3 mg/dL (0.2-1.3); BLOOD UREA NITROGEN 12 mg/dL (7-20); CALCIUM 9.2 mg/dL (8.4-10.2); CARBON DIOXIDE 22 mmol/L (22-30); CHLORIDE 110 mmol/L (98-107); GLUCOSE 128 mg/dL (75-110); POTASSIUM 4.6 mmol/L (3.6-5.0); SODIUM 143.7 mmol/L (137-145); TOTAL PROTEIN 6.9 g/dL (6.3-8.2)
[2016-12-09 14:31] LABS: FREE T3 2.9 pg/mL (2.77-5.27)
[2016-12-09 14:45] LABS: THYROID STIMULATING HORMONE 1.46 uIU/mL (0.47-4.68)
[2016-12-09 14:56] LABS: ADD HIVPANEL? NO; HIV (1 AND 2) ANTIBODY NEGATIVE (NEGATIVE)
[2016-12-10 04:37] LABS: HEPATITIS C VIRUS AB <0.1 s/co ratio (0.0-0.9)
== END ==
LOC: OD 12:05
PROVIDERS: ATTEND Emergency Medicine
DX: Z79.899 Other long term (current) drug therapy (principal); Z20.6 Contact with and (suspected) exposure to human immunodeficiency virus [HIV]; E16.2 Hypoglycemia, unspecified; I16.0 Hypertensive urgency
CPT/HCPCS: 36415; 80053; 81001; 82977; 83036; 84439; 84443; 84481; 85025; 86592; 86701; 86803; 86804; 87340

== ENCOUNTER → 2016-12-19 | Outpatient (CLI) | payer OTHER ==
--- NOTE | 2016-12-19 15:34 | WOMENS IMAGING REPORT ---
EXAM DESCRIPTION: 3D DX MAMMO RIGHT UNILAT COMPLETED DATE/TIME: 12/19/2016 11:10 am REASON FOR STUDY: BREAST MASS C50.411 MALIG NEOPLM OF UPPER-OUTER QUADRANT OF RIGHT FEMALE COMPARISON: August 2016 and February 2016 TECHNIQUE: Standard craniocaudal and mediolateral oblique images of the breast recorded using digita l acquisition and breast tomosynthesis. An additional true lateral view of the right breast was obtained. LIMITATIONS: None. FINDINGS: BREAST: Right MASSES: No suspicious masses. CALCIFICATIONS: No new or suspicious calcifications. ARCHITECTURAL DISTORTION: Postsurgical changes are identified. DEVELOPING DENSITY: None. ASYMMETRY: None noted. OTHER: Skin thickening is again identified consistent with post radiation changes. Read with the assistance of CAD. .[facility] - R2 Cenova Version 1.3 .[facility] - R2 Cenova Version 1.3 .[facility] - R2 Cenova Version 2.4 .[facility] - R2 Cenova Version 2.4 .[facility] - R2 Film Loader Version 9.2 BREAST ULTRASOUND: TECHNIQUE: Static and dynamic grayscale images acquired of the right breast in the specific areas of clinical/mammographic concern. Selected color Doppler images recorded. ELASTOGRAPHY PERFORMED: No. LIMITATIONS: None. FINDINGS: MASS: Postsurgical changes are identified. No discrete masses identified. Skin thickening is identi fied with edematous changes. Possibility of a cellulitis should be considered. ELASTOGRAPHY CHARACTERISTICS: Not applicable. OTHER: No other significant finding. IMPRESSION: Skin thickening with edematous changes are identified in the possibility of a cellulitis should be considered. BREAST DENSITY: b. There are scattered areas of fibroglandular density. BIRAD: 2 Benign findings. RECOMMENDATION: RECOMMENDED FOLLOW UP: Recommend clinical followup SPECIFIC INTERVENTION/IMAGING/CONSULTATION RECOMMENDED:No additional intervention/ imaging/consultati on needed at this time. COMMUNICATION:The imaging findings were not discussed with the patient. Her referring provider has be en notified of the findings. COMMENT: The patient has been notified of the results by letter per MQSA requirements. Additional no tification policies are in place for contacting patient with suspicious or incomplete findings. Quality ID #[id number]: The [employer] recommends an annual screening mammogram for women aged 40 years or over. This facility utilizes a reminder system to ensure that all patients receive reminder letters, and/or direct phone calls for appointments. This includes reminders for routine scr eening mammograms, diagnostic mammograms, or other Breast Imaging Interventions when appropriate. Th is patient will be placed in the appropriate reminder system. The [employer] (ACR) has developed recommendations for screening MRI of the breast s in certain patient populations, to be used in conjunction with mammography. Breast MRI surveillanc e may be appropriate for women with more than 20% lifetime risk of developing breast cancer as deter mined by genetic testing, significant family history of the disease, or history of mantle radiation f or Hodgkins Disease. ACR Practice Guidelines 2008. DBT Technology DBT is a type of tomographic mammography. With conventional mammography, overlapping breast tissue ma y make lesions difficult to detect, even with good compression. DBT uses an x-ray tube that rotates a round the breast, taking images at different angles. These images are then combined to create thin sl ices of the breast that the radiologist can view as a 3D reconstruction. The [employer] unit can perform full-field digital mammograms (2D imaging); or DBT (3D imaging); or both, in a combination mode that quickly performs both the mammogram and the tomosynthesis scan while the breast is still compressed. PQRS 6045F: Fluoroscopic imaging is not utilized for breast tomosynthesis. TECHNICAL DOCUMENTATION: FINDING NUMBER: (1) ASSESSMENT: (1) JOB ID: [id number] [employer]- All Rights Reserved
--- NOTE | 2016-12-19 15:35 | WOMENS IMAGING REPORT ---
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 IMPRESSION: Please see combined report for performance of procedure and radiologic supervision and i nterpretation.
== END ==
LOC: WI 10:19
PROVIDERS: ATTEND Internal Medicine
DX: C50.411 Malignant neoplasm of upper-outer quadrant of right female breast (principal)
CPT/HCPCS: 77061; 76642; G0206

== ENCOUNTER 2017-05-29 13:10 | Emergency (ER) | payer OTHER ==
[2017-05-29 13:45] VITALS: BP 145/85
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
[2017-05-29] MEDS ORDERED: HYDROXYZINE PAMOATE 50 MG CAPSULE PO ONE (13:59)
[2017-05-29 14:08] LABS: APPEARANCE,URINE SLIGHTLY-CLOUDY; BILIRUBIN,URINE NEGATIVE (NEGATIVE); COLOR,URINE YELLOW; GLUCOSE, URINE NEGATIVE (NEGATIVE); KETONES,URINE NEGATIVE (NEGATIVE); LEUKOCYTE ESTERASE,URINE TRACE (NEGATIVE); NITRITE,URINE NEGATIVE (NEGATIVE); PROTEIN,URINE NEGATIVE (NEGATIVE); URINE SPECIFIC GRAVITY 1.021; UROBILINOGEN,URINE NEGATIVE mg/dL (<2.0)
[2017-05-29 14:21] LABS: ABSOLUTE BASOPHILS # (AUTO) 0.1 10^3/uL (0.0-0.2); ABSOLUTE EOSINOPHILS # (AUTO) 0.1 10^3/uL (0.0-0.6); ABSOLUTE LYMPHOCYTES (AUTO) 2.3 10^3/uL (0.5-4.7); ABSOLUTE MONOCYTES (AUTO) 0.7 10^3/uL (0.1-1.4); ABSOLUTE NEUT (AUTO) 6.7 10^3/uL (1.7-8.2); ALANINE AMINOTRANSFERASE 39 U/L (9-52); ALBUMIN 4.1 g/dL (3.5-5.0); ALKALINE PHOSPHATASE 90 U/L (38-126); ANION GAP 10 (5-19); ASPARTATE AMINO TRANSFERASE 23 U/L (14-36); BASOPHILS % (AUTO) 0.7 % (0-2); BILIRUBIN,DIRECT 0.3 mg/dL (0.0-0.4); BILIRUBIN,TOTAL 0.3 mg/dL (0.2-1.3); BLOOD UREA NITROGEN 12 mg/dL (7-20); CALCIUM 9.3 mg/dL (8.4-10.2); CARBON DIOXIDE 26 mmol/L (22-30); CHLORIDE 107 mmol/L (98-107); EOSINOPHILS % (AUTO) 1.1 % (0-6); GLUCOSE 123 mg/dL (75-110); HEMATOCRIT 40.2 % (36.0-47.0); HEMOGLOBIN 13.6 g/dL (12.0-15.5); LYMPHOCYTES % (AUTO) 23.6 % (13-45); MEAN CORPUSCULAR HEMOGLOBIN 29.8 pg (27.0-33.4); MEAN CORPUSCULAR HGB CONC 33.9 g/dL (32.0-36.0); MEAN CORPUSCULAR VOLUME 88 fl (80-97); MONOCYTES % (AUTO) 6.7 % (3-13); PLATELET COUNT 359 10^3/uL (150-450); POTASSIUM 5.4 mmol/L (3.6-5.0); RED BLOOD COUNT 4.58 10^6/uL (3.72-5.28); RED CELL DISTRIBUTION WIDTH 13.1 % (11.5-14.0); SEGMENTED NEUTROPHILS % (AUTO) 67.9 % (42-78); SODIUM 142.9 mmol/L (137-145); TOTAL CELLS COUNTED % (AUTO) 100 %; TOTAL PROTEIN 7.8 g/dL (6.3-8.2); WHITE BLOOD COUNT 9.9 10^3/uL (4.0-10.5)
[2017-05-29 14:23] LABS: ACETAMINOPHEN < 10 ug/mL (10-30); ALCOHOL < 10 mg/dL (NONE DETECTED); SALICYLATE < 1.0 mg/dL (2.0-20.0)
[2017-05-29 14:23] LABS: URINE AMPHETAMINES SCREEN NEGATIVE; URINE BARBITURATES SCREEN NEGATIVE; URINE BENZODIAZEPINES SCREEN NEGATIVE; URINE COCAINE SCREEN NEGATIVE; URINE MARIJUANA (THC) SCREEN NEGATIVE; URINE METHADONE SCREEN NEGATIVE; URINE PHENCYCLIDINE SCREEN NEGATIVE
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
--- NOTE | 2017-05-29 21:51 | EKG REPORT ---
SEVERITY:- NORMAL ECG - SINUS RHYTHM : Confirmed by: Marino Peters 29-May-2017 21:51:11
== END 2017-05-29 18:00 | disposition home or self-care (01) ==
LOC: ER 13:10
DX: F31.9 Bipolar disorder, unspecified (principal); R45.851 Suicidal ideations
CPT/HCPCS: 36415; 80053; 80307; 81001; 85025; 93005; 93010; 99285

== ENCOUNTER 2017-05-29 18:09 | Emergency (ER) | payer OTHER ==
[2017-05-29 18:28] LABS: ABSOLUTE BASOPHILS # (AUTO) 0.1 10^3/uL (0.0-0.2); ABSOLUTE EOSINOPHILS # (AUTO) 0.1 10^3/uL (0.0-0.6); ABSOLUTE LYMPHOCYTES (AUTO) 3.3 10^3/uL (0.5-4.7); ABSOLUTE MONOCYTES (AUTO) 0.6 10^3/uL (0.1-1.4); BASOPHILS % (AUTO) 0.9 % (0-2); EOSINOPHILS % (AUTO) 0.7 % (0-6); HEMATOCRIT 39.5 % (36.0-47.0); HEMOGLOBIN 13.3 g/dL (12.0-15.5); LYMPHOCYTES % (AUTO) 26.9 % (13-45); MEAN CORPUSCULAR HEMOGLOBIN 29.6 pg (27.0-33.4); MEAN CORPUSCULAR HGB CONC 33.6 g/dL (32.0-36.0); MEAN CORPUSCULAR VOLUME 88 fl (80-97); MONOCYTES % (AUTO) 5.2 % (3-13); PLATELET COUNT 353 10^3/uL (150-450); RED BLOOD COUNT 4.49 10^6/uL (3.72-5.28); RED CELL DISTRIBUTION WIDTH 12.9 % (11.5-14.0); SEGMENTED NEUTROPHILS % (AUTO) 66.3 % (42-78); TOTAL CELLS COUNTED % (AUTO) 100 %; WHITE BLOOD COUNT 12.1 10^3/uL (4.0-10.5)
[2017-05-29 18:49] LABS: ALANINE AMINOTRANSFERASE 35 U/L (9-52); ALBUMIN 4.1 g/dL (3.5-5.0); ALKALINE PHOSPHATASE 87 U/L (38-126); ANION GAP 14 (5-19); ASPARTATE AMINO TRANSFERASE 22 U/L (14-36); BILIRUBIN,DIRECT 0.2 mg/dL (0.0-0.4); BILIRUBIN,TOTAL 0.3 mg/dL (0.2-1.3); BLOOD UREA NITROGEN 10 mg/dL (7-20); CALCIUM 9.4 mg/dL (8.4-10.2); CARBON DIOXIDE 21 mmol/L (22-30); CHLORIDE 106 mmol/L (98-107); GLUCOSE 225 mg/dL (75-110); SODIUM 141.2 mmol/L (137-145); TOTAL PROTEIN 7.2 g/dL (6.3-8.2)
[2017-05-29 19:01] LABS: ACETAMINOPHEN < 10 ug/mL (10-30); ALCOHOL < 10 mg/dL (NONE DETECTED); POTASSIUM 4.3 mmol/L (3.6-5.0); SALICYLATE < 1.0 mg/dL (2.0-20.0)
[2017-05-29 19:17] LABS: APPEARANCE,URINE CLEAR; BILIRUBIN,URINE NEGATIVE (NEGATIVE); COLOR,URINE YELLOW; GLUCOSE, URINE NEGATIVE (NEGATIVE); KETONES,URINE NEGATIVE (NEGATIVE); LEUKOCYTE ESTERASE,URINE NEGATIVE (NEGATIVE); NITRITE,URINE NEGATIVE (NEGATIVE); PROTEIN,URINE 30 mg/dL (NEGATIVE); URINE SPECIFIC GRAVITY 1.017; UROBILINOGEN,URINE NEGATIVE mg/dL (<2.0)
[2017-05-29 19:35] LABS: URINE AMPHETAMINES SCREEN NEGATIVE; URINE BARBITURATES SCREEN NEGATIVE; URINE BENZODIAZEPINES SCREEN NEGATIVE; URINE COCAINE SCREEN NEGATIVE; URINE MARIJUANA (THC) SCREEN NEGATIVE; URINE METHADONE SCREEN NEGATIVE; URINE PHENCYCLIDINE SCREEN NEGATIVE
--- NOTE | 2017-05-29 23:32 | ER Document Report ---
ED General - General Chief Complaint: Suicidal Ideation Stated Complaint: SUICIDAL IDEATION Time Seen by Provider: 05/29/17 18:15 TRAVEL OUTSIDE OF THE [place] IN LAST 30 DAYS: No - HPI Patient complains to provider of: Attempt overdose Notes: Patient seen earlier today evaluated by our psychiatric team upon discharge patient took a bottle of Neurontin and try to ingest multiple capsules. Patient was then julian by our security team and placed back in her psych holding area. Upon my evaluation patient states she did not swallow any tablets however at this time we are unable to account for 4 of them. This will be approximately 1200 mg of Neurontin. Patient states that she does not want to harm herself but does not trust herself if she is discharged home. I asked the patient why she tried to ingest tablets patient reiterates that she did not swallow anything. Explained to the patient that she was seen on the ground with her pills trying to take multiple capsules. Patient again reiterates that she does not want to go home and she did not swallow any pills. - Related Data Allergies/Adverse Reactions: Penicillins Allergy (Unknown, Verified 05/29/17 18:30) Past Medical History - Social History Smoking Status: Unknown if Ever Smoked Chew tobacco use (# tins/day): No Frequency of alcohol use: None Drug Abuse: None Family History: Reviewed & Not Pertinent Patient has suicidal ideation: Yes Patient has homicidal ideation: No - Past Medical History Cardiac Medical History: Reports: Hx Hypercholesterolemia Denies: Hx Coronary Artery Disease, Hx Heart Attack, Hx Hypertension Pulmonary Medical History: Reports: Hx Bronchitis Denies: Hx Asthma, Hx COPD - SOB WHEN LYING ON SIDE AND BENDING OVER, HAS A SMOKERS COUGH, Hx Pneumonia, Hx Tuberculosis Neurological Medical History: Denies: Hx Cerebrovascular Accident, Hx Seizures Renal/ Medical History: Reports: Hx Ovarian Cysts - Right-sided. Denies: Hx Peritoneal Dialysis Malignancy Medical History: Reports: Hx Breast Cancer - Right, diagnosed 15 months ago, treated with surgery and radiation GI Medical History: Reports: Hx Gastroesophageal Reflux Disease Musculoskeltal Medical History: Denies Hx Arthritis Psychiatric Medical History: Reports: Hx Anxiety, Hx Bipolar Disorder, Hx Depression Past Surgical History: Reports: Hx Breast Surgery - left lumpectomy, Hx Gynecologic Surgery - ovarian cyst removal, Hx Orthopedic Surgery - back surgery - Immunizations Hx Diphtheria, Pertussis, Tetanus Vaccination: - UNSURE Review of Systems - Review of Systems Constitutional: No symptoms reported EENT: No symptoms reported Cardiovascular: No symptoms reported Respiratory: No symptoms reported Gastrointestinal: No symptoms reported Genitourinary: No symptoms reported Female Genitourinary: No symptoms reported Musculoskeletal: No symptoms reported Skin: No symptoms reported Hematologic/Lymphatic: No symptoms reported Neurological/Psychological: Depression -: Yes All other systems reviewed and negative Physical Exam - Vital signs Vitals: Temp Pulse Resp BP Pulse Ox 99.1 F 73 16 116/65 100 05/29/17 22:37 05/29/17 22:37 05/29/17 22:37 05/29/17 22:37 05/29/17 22:37 Interpretation: Normal - General General appearance: Appears well, Alert - HEENT Head: Normocephalic, Atraumatic Eyes: Normal Pupils: PERRL - Respiratory Respiratory status: No respiratory distress Chest status: Nontender Breath sounds: Normal Chest palpation: Normal - Cardiovascular Rhythm: Regular Heart sounds: Normal auscultation Murmur: No - Abdominal Inspection: Normal Distension: No distension Bowel sounds: Normal Tenderness: Nontender Organomegaly: No organomegaly - Back Back: Normal, Nontender - Extremities General upper extremity: Normal inspection, Nontender, Normal color, Normal ROM , Normal temperature General lower extremity: Normal inspection, Nontender, Normal color, Normal ROM , Normal temperature, Normal weight bearing. No: Jessenia's sign - Neurological Neuro grossly intact: Yes Cognition: Normal Orientation: AAOx4 Kimberli Coma Scale Eye Opening: Spontaneous [place] Coma Scale Verbal: Oriented Kimberli Coma Scale Motor: Obeys Commands [place] Coma Scale Total: 15 Speech: Normal Motor strength normal: LUE, RUE, LLE, RLE Sensory: Normal - Psychological Associated symptoms: Agitated - Skin Skin Temperature: Warm Skin Moisture: Dry Skin Color: Normal Course - Re-evaluation Re-evalutation: 05/29/17 23:30 Apparently patient initially came in for possible suicide attempt was evaluated by our psychiatric team patient has a history of sabotaging her discharges patient looks to have continued with this plan possibly ingesting her Neurontin. Did contact poison control recommended observation for at least 4-6 hours. Patient at this time is resting comfortably. We did place the patient back on a petition is that he did like she was attempting to harm himself. Patient at this time is medically cleared for further psychiatric evaluation in the morning. - Vital Signs Vital signs: Temp Pulse Resp BP Pulse Ox 99.1 F 73 16 116/65 100 05/29/17 22:37 05/29/17 22:37 05/29/17 22:37 05/29/17 22:37 05/29/17 22:37 - Laboratory Result Diagrams: 05/29/17 18:16 05/29/17 18:16 Laboratory results interpreted by me: 05/29/17 05/29/17 05/29/17 18:16 18:16 18:16 WBC 12.1 H Carbon Dioxide 21 L Glucose 225 H Urine Protein 30 H Salicylates < 1.0 L Acetaminophen < 10 L Critical Care Note - Critical Care Note Total time excluding time spent on procedures (mins): 35 Comments: Multiple evaluations for possible evidence of Neurontin. Discharge - Discharge Clinical Impression: Excessive Neurontin ingestion Condition: Fair Disposition: PSYCH HOSP/UNIT
--- NOTE | 2017-05-30 09:56 | PSYCHOLOGICAL NOTE ---
Psych Note - Psych Note Psych Note: Reason for Consult: suicidal ideation Consult requested:0700 Evaluation:0715 Patient seen earlier today evaluated by our psychiatric team upon discharge patient took a bottle of Neurontin and try to ingest multiple capsules. Patient was then julian by our security team and placed back in her psych holding area. Upon my evaluation patient states she did not swallow any tablets however at this time we are unable to account for 4 of them. This will be approximately 1200 mg of Neurontin. Patient states that she does not want to harm herself but does not trust herself if she is discharged home. Patient was asked why she took the medication after discharge yesterday. She states that "I was not thinking straight." Clinician discussed therapeutic options with the patient to include CBT and DBT. Patient states she is interested in this. Patient continued to disclose that she would like to go inpatient however discloses passive suicidal ideation. Clinician explained to patient again difference between voluntary and involuntary psychiatric inpatient treatment. Patient asked if [facility] has a therapist that can provide CBT or DBT. Patient is alert and orientated to person place time and circumstance. Mood is euthymic with congruent affect. Patient endorses current passive suicidal ideation, no plans, means or intent. Patient denies homicidal ideation. Patient denies auditory and visual hallucinations. Delusions were absent and behaviors congruent with an intact reality based presentation (i.e. organized, linear, rational thinking). Eye contact was well-maintained. Intellectual abilities appear to be within the low average range. Conversational speech was within normal rate tone and prosody. Attention and concentration were good. Insight, judgment, impulse control appears to be historically poor. Behavior health team attempted contact with patient's ; phone number indicates cell is unable to accept calls at this time. No medication recommendations at this time 296.90 Unspecified bipolar and related disorder, per history 301.83 (F60.3) borderline personality disorder R/O Substance abuse Impression\\plan: Patient considered cleared from acute psychiatric services. Patient does not meet IVC criteria per [place] GS 122C. this patient is well known to this clinician and department. Patient has demonstrated during every [facility] ED visit extreme distress at the thought of abandonment and goes to great lengths to obtain attention from both spouse in [facility] ED staff (i.e. often appears dramatic, emotional, or erratic with attention seeking behaviours). Once patient receives the attention she craves from her spouse she can be noted smiling laughing holding hands and cuddling. Patient endorses passive suicidal ideation ie no plans means or intent. Delusions were absent and behaviors congruent with intact reality based presentation (i.e. organized, linear, rational thinking). Patient disclosed that she has been off her medication for 4 months; patient is historically noncompliant with medications and during past [facility] ED visits has requested narcotics. It would be more appropriate for patent to receive medication recommendations from an outpatient mental health provider that can follow and monitor her treatment. Additionally, clinician notes patient's treatment for her mental health would be more appropriately addressed through therapeutic interventions obtained through outpatient mental health services. Behavior health team discussed with patient again the difference between involuntary commitment to psychiatric treatment and voluntary placement. [facility] ED is unable to do voluntary placements. Patient is recommended to follow-up with [facility] for her mental health services. Patient is known to historically attempt to sabotage discharge. Dr. Platt was consulted on the care and management of this patient; attending physician is in agreement with recommendations and disposition.
--- NOTE | 2017-05-30 10:52 | ER Document Report ---
Doctor's Note Notes: 05/30/17 10:51 Rounds: Chart reviewed and patient interviewed. Patient being evaluated for suicidal ideation. Vital signs are all normal. Lab studies are all normal except for a white count of just 12,100. No signs of infection. Patient does not feel suicidal at this time. She has been evaluated by mental health who are recommending outpatient follow-up. Patient appears to be medically stable for transfer or discharge. Priti Mark MD
[2017-05-30 11:07] VITALS: BP 138/70
--- NOTE | 2017-05-30 21:00 | EKG REPORT ---
SEVERITY:- NORMAL ECG - SINUS RHYTHM : Confirmed by: Marino Peters 30-May-2017 21:00:27
== END 2017-05-30 11:07 | disposition home or self-care (01) ==
LOC: ER 18:09
DX: T42.6X1A Poisoning by other antiepileptic and sedative-hypnotic drugs, accidental (unintentional), initial encounter (principal); Y92.239 Unspecified place in hospital as the place of occurrence of the external cause; F60.3 Borderline personality disorder; F31.9 Bipolar disorder, unspecified; Z88.0 Allergy status to penicillin; Z85.3 Personal history of malignant neoplasm of breast
CPT/HCPCS: 36415; 80053; 80307; 81001; 85025; 93005; 93010; 99285

== ENCOUNTER 2017-08-04 12:56 | Emergency (ER) | payer OTHER ==
--- NOTE | 2017-08-04 13:31 | ER Document Report ---
HPI - HPI Pain Level: 3 Notes: Patient is a 51-year-old female with a history of mental health disorders who presents to the ED complaining of bilateral ear pain, feeling of ears being clogged over the last few days. Patient states that her left ear has been bothering her for 5 days and her right ear for the last day. She is still eating and drinking without difficulties. She is urinating normally and having normal bowel movements. The pain does not radiate. She denies any other recent illness. Patient also notes a small rash to her bilateral medial arms that itches on occasion that developed over the last 1-2 days. She has not noticed any vesicular lesions, abscess, or purulence. No other concerns or complaints at this time. Denies any headache, fever, neck pain, URI, sore throat, chest pain, palpitations, syncope, cough, shortness of breath, wheeze, dyspnea, abdominal pain, nausea/vomiting/diarrhea, urinary retention, dysuria, hematuria. - ROS Systems Reviewed and Negative: Yes All other systems reviewed and negative - REPRODUCTIVE Reproductive: DENIES: : Past Medical History - Social History Smoking Status: Former Smoker Family History: Reviewed & Not Pertinent - Past Medical History Cardiac Medical History: Reports: Hx Hypercholesterolemia Denies: Hx Coronary Artery Disease, Hx Heart Attack, Hx Hypertension Pulmonary Medical History: Reports: Hx Bronchitis Denies: Hx Asthma, Hx COPD - SOB WHEN LYING ON SIDE AND BENDING OVER, HAS A SMOKERS COUGH, Hx Pneumonia, Hx Tuberculosis Neurological Medical History: Denies: Hx Cerebrovascular Accident, Hx Seizures Renal/ Medical History: Reports: Hx Ovarian Cysts - Right-sided. Denies: Hx Peritoneal Dialysis Malignancy Medical History: Reports: Hx Breast Cancer - Right, diagnosed 15 months ago, treated with surgery and radiation GI Medical History: Reports: Hx Gastroesophageal Reflux Disease Musculoskeltal Medical History: Denies Hx Arthritis Psychiatric Medical History: Reports: Hx Anxiety, Hx Bipolar Disorder, Hx Depression Past Surgical History: Reports: Hx Breast Surgery - left lumpectomy, Hx Gynecologic Surgery - ovarian cyst removal, Hx Orthopedic Surgery - back surgery - Immunizations Hx Diphtheria, Pertussis, Tetanus Vaccination: - UNSURE Vertical Provider Document - CONSTITUTIONAL Agree With Documented VS: Yes Notes: PHYSICAL EXAMINATION: GENERAL: Well-appearing, well-nourished and in no acute distress. HEAD: Atraumatic, normocephalic. EYES: Pupils equal round and reactive to light, extraocular movements intact, sclera anicteric, conjunctiva are normal. ENT: mild deep cerumen impaction b/l. TM's intact b/l without erythema, fluid, or perforation. Nares patent and without discharge. oropharynx clear without exudates. No tonsilar hypertrophy or erythema. Moist mucous membranes. No sinus tenderness. NECK: Normal range of motion, supple without lymphadenopathy LUNGS: Breath sounds clear to auscultation bilaterally and equal. No wheezes rales or rhonchi. HEART: Regular rate and rhythm without murmurs, rubs, gallops. Extremities: No cyanosis, clubbing, or edema b/l. Peripheral pulses 2+. Capillary refill less than 3 seconds. NEUROLOGICAL: Normal speech, normal gait. PSYCH: Normal mood, normal affect. SKIN: small maculopapular rash b/l medial arms. Non-tender. no abscess. - INFECTION CONTROL TRAVEL OUTSIDE OF THE [place] IN LAST 30 DAYS: No Course - Re-evaluation Re-evalutation: 08/04/17 13:28 Patient is an afebrile, well-hydrated, 51-year-old female who presents to the ED with cerumen impaction bilaterally as well as a rash, suspect allergic. Vitals are acceptable. PE is otherwise unremarkable. Ears were irrigated and the ED which improved symptoms, but did not totally eliminate her impaction. Advised patient that she will need to be seen by ENT. No labs or imaging warranted at this time based on H&P. She has no significant tachycardia, tachypnea, or hypoxia. She is tolerating p.o. without difficulties and is nontoxic-appearing. Low suspicion for any sepsis, meningitis, severe dehydration, respiratory compromise, mastoiditis, or other systemic emergent condition at this time. Patient is aware that condition can change from initial presentation and she needs to monitor symptoms closely and seek medical attention with any acute changes. Conservative measures for symptoms otherwise. Recheck with your PCM in 3-5 days. Consider consult with ENT. Return to the ED with any worsening/concerning symptoms otherwise as reviewed discharge. Patient is in agreement. Discharge - Discharge Clinical Impression: Impacted cerumen, bilateral, Rash and nonspecific skin eruption Condition: Stable Disposition: HOME, SELF-CARE Instructions: Cerumen Impaction ([facility]) Additional Instructions: Keep the skin clean Wash with soap and water Tylenol/ibuprofen if needed Cortisone/benadryl cream for rash Take medication as directed Monitor for any worsening symptoms Recheck with your PCM in 3-5 days Consider consult with ENT for ongoing/worsening symptoms Return to the ED with any worsening symptoms and/or development of fever, headache, chest pain, palpitations, syncope, shortness of breath, trouble breathing, abdominal pain, n/v/d, abscess, purulent discharge, red streaks, worsening swelling, or other worsening symptoms that are concerning to you. Prescriptions: Carbamide Peroxide [Debrox] 5 drop OT BID #1 bottle Referrals: ROBINSON SELF DO [ASSOCIATE] - Follow up as needed
== END 2017-08-04 14:04 | disposition home or self-care (01) ==
LOC: ER 12:56
DX: H61.23 Impacted cerumen, bilateral (principal); R21 Rash and other nonspecific skin eruption; Z87.891 Personal history of nicotine dependence
CPT/HCPCS: 99282

== ENCOUNTER 2018-03-13 14:06 | Observation (INO) | payer SELFPAY ==
--- NOTE | 2018-03-13 14:44 | RADIOLOGY REPORT (SQ) ---
EXAM DESCRIPTION: CT HEAD WITHOUT COMPLETED DATE/TIME: 03/13/2018 2:27 pm REASON FOR STUDY: weakness COMPARISON: 02/27/2016 TECHNIQUE: Axial images acquired through the brain without intravenous contrast. Images reviewed wi th bone, brain and subdural windows. Additional sagittal and coronal reconstructions were generated. Images stored on PACS. All CT scanners at this facility use dose modulation, iterative reconstruction, and/or weight based d osing when appropriate to reduce radiation dose to as low as reasonably achievable (ALARA). [facility]: Dose Right [facility]: CareDose [facility]: Dose Right [facility]: Teradose 4D [facility]: [employer] RADIATION DOSE: CT Rad equipment meets quality standard of care and radiation dose reduction techniq ues were employed. CTDIvol: 53.2 mGy. DLP: 1044 mGy-cm. mGy. LIMITATIONS: None. FINDINGS: VENTRICLES: Normal size and contour. CEREBRUM: No masses. No hemorrhage. No midline shift. No evidence for acute infarction. Normal gra y/white matter differentiation. No areas of low density in the white matter. CEREBELLUM: No masses. No hemorrhage. No alteration of density. No evidence for acute infarction. EXTRAAXIAL SPACES: No fluid collections. No masses. ORBITS AND GLOBE: No intra- or extraconal masses. Normal contour of globe without masses. CALVARIUM: No fracture. PARANASAL SINUSES: No fluid or mucosal thickening. SOFT TISSUES: No mass or hematoma. OTHER: No other significant finding. IMPRESSION: No CT evidence of acute stroke or hemorrhage. EVIDENCE OF ACUTE STROKE: NO. Findings reported to Dr. Diaz, ER, at 1435 hours, 03/13/2018 COMMENT: Quality ID # [id number]: Final reports with documentation of one or more dose reduction techniques (e.g., Automated exposure control, adjustment of the mA and/or kV according to patient size, use of iterative reconstruction technique) TECHNICAL DOCUMENTATION: JOB ID: [id number] [employer]- All Rights Reserved Reading location - IP/workstation name: [email or web address]
--- NOTE | 2018-03-13 15:03 | RADIOLOGY REPORT (SQ) ---
EXAM DESCRIPTION: CHEST SINGLE VIEW COMPLETED DATE/TIME: 03/13/2018 2:40 pm REASON FOR STUDY: weakness COMPARISON: 12/25/2016 EXAM PARAMETERS: NUMBER OF VIEWS: One view. TECHNIQUE: Single frontal radiographic view of the chest acquired. RADIATION DOSE: NA LIMITATIONS: None. FINDINGS: LUNGS AND PLEURA: No opacities, masses or pneumothorax. No pleural effusion. MEDIASTINUM AND HILAR STRUCTURES: No masses. Contour normal. HEART AND VASCULAR STRUCTURES: Heart normal in size. Normal vasculature. BONES: No acute findings. HARDWARE: None in the chest. OTHER: No other significant finding. IMPRESSION: No acute abnormality of the lungs. TECHNICAL DOCUMENTATION: JOB ID: [id number] [employer]- All Rights Reserved Reading location - IP/workstation name: [email or web address]
[2018-03-13] MEDS ORDERED: ASPIRIN 81 MG TABLET, CHEWABLE PO ONE (15:11)
--- NOTE | 2018-03-13 15:12 | ER Document Report ---
ED General - General Chief Complaint: Weakness Stated Complaint: CHEST PAIN Time Seen by Provider: 03/13/18 15:01 Mode of Arrival: Ambulatory Information source: Patient, Relative, [facility] Records Notes: 52-year-old female with hyperlipidemia, COPD, bipolar disorder, remote history of right-sided breast cancer presents with complaint of right-sided weakness and chest pain. Patient states chest pain started this morning upon awakening. She describes it as substernal, pressure-like. She states that approximately 5 hours prior to arrival she began having right-sided facial numbness, right arm weakness. Patient denies prior similar symptoms. She reports blurred vision in her right eye. Patient does smoke 1 pack/day. She admits to occasional marijuana use. She denies any recent illness. TRAVEL OUTSIDE OF THE [place] IN LAST 30 DAYS: No - HPI Onset: Just prior to arrival Onset/Duration: Sudden Quality of pain: Pressure Severity: Mild Associated symptoms: Chest pain, Weakness. denies: Nonproductive cough, Productive cough, Headache, Nausea, Vomiting, Shortness of breath Exacerbated by: Denies Relieved by: Denies Similar symptoms previously: No Recently seen / treated by doctor: No - Related Data Allergies/Adverse Reactions: Penicillins Allergy (Unknown, Verified 03/13/18 15:26) Past Medical History - General Information source: Patient, [facility] Records - Social History Smoking Status: Current Every Day Smoker Cigarette use (# per day): Yes - 15 Smoking Education Provided: Yes - Smoking cessation counseling was provided for 4 minutes at the bedside Frequency of alcohol use: None Drug Abuse: Marijuana Family History: Reviewed & Not Pertinent - Past Medical History Cardiac Medical History: Reports: Hx Hypercholesterolemia Denies: Hx Coronary Artery Disease, Hx Heart Attack, Hx Hypertension Pulmonary Medical History: Reports: Hx Bronchitis Denies: Hx Asthma, Hx COPD - SOB WHEN LYING ON SIDE AND BENDING OVER, HAS A SMOKERS COUGH, Hx Pneumonia, Hx Tuberculosis Neurological Medical History: Denies: Hx Cerebrovascular Accident, Hx Seizures Renal/ Medical History: Reports: Hx Ovarian Cysts - Right-sided. Denies: Hx Peritoneal Dialysis Malignancy Medical History: Reports: Hx Breast Cancer - Right, diagnosed 15 months ago, treated with surgery and radiation GI Medical History: Reports: Hx Gastroesophageal Reflux Disease Musculoskeletal Medical History: Denies Hx Arthritis Psychiatric Medical History: Reports: Hx Anxiety, Hx Bipolar Disorder, Hx Depression Past Surgical History: Reports: Hx Breast Surgery - left lumpectomy, Hx Gynecologic Surgery - ovarian cyst removal, Hx Orthopedic Surgery - back surgery - Immunizations Hx Diphtheria, Pertussis, Tetanus Vaccination: - UNSURE Review of Systems - Review of Systems Constitutional: Weakness. denies: Recent illness EENT: Blurred vision. denies: Difficulty swallowing Cardiovascular: Chest pain. denies: Dizziness, Lightheaded Respiratory: denies: Short of breath, Wheezing Gastrointestinal: denies: Abdominal pain, Nausea, Vomiting Genitourinary: denies: Dysuria Female Genitourinary: No symptoms reported Musculoskeletal: Back pain - Chronic Skin: denies: Rash Hematologic/Lymphatic: No symptoms reported Neurological/Psychological: Sensory change, Weakness, Numbness -: Yes All other systems reviewed and negative Physical Exam - Vital signs Vitals: Pulse Ox 96 03/13/18 14:30 - Notes Notes: PHYSICAL EXAMINATION: GENERAL: Well-appearing, well-nourished and in no acute distress. HEAD: Atraumatic, normocephalic. EYES: Pupils equal round and reactive to light, extraocular movements intact, conjunctiva are normal. ENT: Nares patent, oropharynx clear without exudates. Moist mucous membranes. NECK: Normal range of motion, supple without lymphadenopathy LUNGS: Breath sounds clear to auscultation bilaterally and equal. No wheezes rales or rhonchi. HEART: Regular rate and rhythm without murmurs ABDOMEN: Soft, nontender, nondistended abdomen. No guarding, no rebound. No masses appreciated. Female : deferred Musculoskeletal: Normal range of motion, no pitting or edema. No cyanosis. NEUROLOGICAL: Cranial nerves grossly intact. Normal speech, normal gait. Normal motor exams. NIH3 4 right-sided facial droop, right upper extremity ataxia and drift. PSYCH: Normal mood, normal affect. SKIN: Warm, Dry, normal turgor, no rashes or lesions noted. Course - Re-evaluation Re-evalutation: 03/14/18 00:06 Laboratory 03/13/18 03/13/18 03/13/18 14:30 14:30 14:30 WBC 8.8 RBC 5.01 Hgb 14.9 Hct 43.7 MCV 87 MCH 29.8 MCHC 34.1 RDW 13.7 Plt Count 319 Seg Neutrophils % 60.0 Lymphocytes % 32.1 Monocytes % 6.3 Eosinophils % 1.0 Basophils % 0.6 Absolute Neutrophils 5.3 Absolute Lymphocytes 2.8 Absolute Monocytes 0.6 Absolute Eosinophils 0.1 Absolute Basophils 0.1 PT 13.2 INR 0.95 APTT 25.7 Sodium 139.3 Potassium 4.4 Chloride 110 H Carbon Dioxide 22 Anion Gap 7 BUN 6 L Creatinine 0.82 Est GFR ( Amer) > 60 Est GFR (Non-Af Amer) > 60 Glucose 169 H Calcium 9.4 Phosphorus Magnesium Total Bilirubin 0.6 Direct Bilirubin 0.4 Neonat Total Bilirubin Not Reportable Neonat Direct Bilirubin Not Reportable Neonat Indirect Bili Not Reportable AST 38 H ALT 46 Alkaline Phosphatase 85 Creatine Kinase 49 CK-MB (CK-2) Troponin I Total Protein 7.2 Albumin 4.1 Triglycerides Cholesterol LDL Cholesterol Direct VLDL Cholesterol HDL Cholesterol Urine Color Urine Appearance Urine pH Ur Specific [place] Urine Protein Urine Glucose (UA) Urine Ketones Urine Blood Urine Nitrite Urine Bilirubin Urine Urobilinogen Ur Leukocyte Esterase Urine WBC (Auto) Urine RBC (Auto) U Hyaline Cast (Auto) Squamous Epi Cells Auto Urine Mucus (Auto) Urine Ascorbic Acid Urine Opiates Screen Urine Methadone Screen Ur Barbiturates Screen Ur Phencyclidine Scrn Ur Amphetamines Screen U Benzodiazepines Scrn Urine Cocaine Screen U Marijuana (THC) Screen 03/13/18 03/13/18 03/13/18 14:30 14:30 15:42 WBC RBC Hgb Hct MCV MCH MCHC RDW Plt Count Seg Neutrophils % Lymphocytes % Monocytes % Eosinophils % Basophils % Absolute Neutrophils Absolute Lymphocytes Absolute Monocytes Absolute Eosinophils Absolute Basophils PT INR APTT Sodium Potassium Chloride Carbon Dioxide Anion Gap BUN Creatinine Est GFR ( Amer) Est GFR (Non-Af Amer) Glucose Calcium Phosphorus 3.4 Magnesium 2.1 Total Bilirubin Direct Bilirubin Neonat Total Bilirubin Neonat Direct Bilirubin Neonat Indirect Bili AST ALT Alkaline Phosphatase Creatine Kinase CK-MB (CK-2) < 0.22 Troponin I < 0.012 Total Protein Albumin Triglycerides 145 Cholesterol 192.67 LDL Cholesterol Direct 110 H VLDL Cholesterol 29.0 HDL Cholesterol 37 L Urine Color Urine Appearance Urine pH Ur Specific [place] Urine Protein Urine Glucose (UA) Urine Ketones Urine Blood Urine Nitrite Urine Bilirubin Urine Urobilinogen Ur Leukocyte Esterase Urine WBC (Auto) Urine RBC (Auto) U Hyaline Cast (Auto) Squamous Epi Cells Auto Urine Mucus (Auto) Urine Ascorbic Acid Urine Opiates Screen NEGATIVE Urine Methadone Screen NEGATIVE Ur Barbiturates Screen NEGATIVE Ur Phencyclidine Scrn NEGATIVE Ur Amphetamines Screen NEGATIVE U Benzodiazepines Scrn NEGATIVE Urine Cocaine Screen NEGATIVE U Marijuana (THC) Screen UNCONFIRMED POSITIVE 03/13/18 15:42 WBC RBC Hgb Hct MCV MCH MCHC RDW Plt Count Seg Neutrophils % Lymphocytes % Monocytes % Eosinophils % Basophils % Absolute Neutrophils Absolute Lymphocytes Absolute Monocytes Absolute Eosinophils Absolute Basophils PT INR APTT Sodium Potassium Chloride Carbon Dioxide Anion Gap BUN Creatinine Est GFR ( Amer) Est GFR (Non-Af Amer) Glucose Calcium Phosphorus Magnesium Total Bilirubin Direct Bilirubin Neonat Total Bilirubin Neonat Direct Bilirubin Neonat Indirect Bili AST ALT Alkaline Phosphatase Creatine Kinase CK-MB (CK-2) Troponin I Total Protein Albumin Triglycerides Cholesterol LDL Cholesterol Direct VLDL Cholesterol HDL Cholesterol Urine Color YELLOW Urine Appearance SLIGHTLY-CLOUDY Urine pH 5.0 Ur Specific [place] 1.019 Urine Protein 30 H Urine Glucose (UA) NEGATIVE Urine Ketones TRACE H Urine Blood NEGATIVE Urine Nitrite NEGATIVE Urine Bilirubin NEGATIVE Urine Urobilinogen NEGATIVE Ur Leukocyte Esterase SMALL H Urine WBC (Auto) 2 Urine RBC (Auto) 1 U Hyaline Cast (Auto) 3 Squamous Epi Cells Auto 5 Urine Mucus (Auto) MANY Urine Ascorbic Acid NEGATIVE Urine Opiates Screen Urine Methadone Screen Ur Barbiturates Screen Ur Phencyclidine Scrn Ur Amphetamines Screen U Benzodiazepines Scrn Urine Cocaine Screen U Marijuana (THC) Screen Chest X-Ray 03/13/18 00:00 IMPRESSION: No acute abnormality of the lungs. Head CT 03/13/18 00:00 IMPRESSION: No CT evidence of acute stroke or hemorrhage. EVIDENCE OF ACUTE STROKE: NO. Findings reported to Dr. Diaz, ER, at 1435 hours, 03/13/2018 Head MRI 03/13/18 00:00 IMPRESSION: No evidence of acute infarction. Head CTA 03/13/18 15:10 IMPRESSION: There is calcific atherosclerosis of the bilateral distal internal carotid arteries, with approximately 50% calcific stenosis of the cavernous portion of the left internal carotid artery. The vessel is patent and normal in caliber distally. Otherwise normal CT angiogram of the head and neck. Neck CTA 03/13/18 15:10 IMPRESSION: There is calcific atherosclerosis of the bilateral distal internal carotid arteries, with approximately 50% calcific stenosis of the cavernous portion of the left internal carotid artery. The vessel is patent and normal in caliber distally. Otherwise normal CT angiogram of the head and neck. Temp Pulse Resp BP Pulse Ox 97.8 F 79 16 121/77 99 03/13/18 23:46 03/13/18 23:46 03/13/18 23:46 03/13/18 23:46 03/13/18 23:46 52-year-old female presents with strokelike symptoms that started 5 hours prior to arrival. Patient reports an acute onset of chest pain, right-sided weakness and right sided facial paresthesias. Vital signs reviewed and within normal limits upon arrival. CT of the head showed no evidence of hemorrhagic stroke. CTA of the head and neck showed no large vessel occlusions. NIH stroke scale performed and 3 for right-sided facial droop, right-sided upper extremity ataxia and drift. Patient did receive aspirin during her ED course. CBC, CMP are u nremarkable. Troponin within normal limits. Patient will be admitted for medical management, MRI. Patient is agreeable with admission. - Vital Signs Vital signs: Temp Pulse Resp BP Pulse Ox 97.8 F 79 16 121/77 99 03/13/18 23:46 03/13/18 23:46 03/13/18 23:46 03/13/18 23:46 03/13/18 23:46 - Laboratory Result Diagrams: 03/13/18 14:30 03/13/18 14:30 Laboratory results interpreted by me: 03/13/18 03/13/18 03/13/18 14:30 14:30 15:42 Chloride 110 H BUN 6 L Glucose 169 H AST 38 H LDL Cholesterol Direct 110 H HDL Cholesterol 37 L Urine Protein 30 H Urine Ketones TRACE H Ur Leukocyte Esterase SMALL H - Diagnostic Test Radiology reviewed: Image reviewed, Reports reviewed - EKG Interpretation by [place] EKG shows normal: Sinus rhythm Rate: Normal Rhythm: NSR When compared to previous EKG there are: No significant change Critical Care Note - Critical Care Note Total time excluding time spent on procedures (mins): 35 - Minutes of critical care time spent in direct contact evaluating and reevaluating the patient, treating symptoms, reviewing labs and studies and speaking with family and consultants excluding any procedures Discharge - Discharge Clinical Impression: Stroke-like symptoms, Right sided weakness, Right-sided paresthesias, Acute cerebrovascular accident (CVA), Tobacco abuse disorder Condition: Good Disposition: ADMITTED INPATIENT Admitting Provider: Hospitalist Unit Admitted: [facility] ED NIH Stroke Scale - NIH Stroke Scale *: 1. NIH scale should be completed with appropriate accompanying assessment tools. *: 2. The NIH should reflect what the patient is capable of doing and should not be coached by the clinician. 1a. Level of Consciousness: 0=Alert;keenly responsive -: 1=Drowsy -: 2=Obtunded -: 3=Coma/unresponsive or reflex to noxious stimuli. 1a. Responses: 0 1b. Orientation Questions: a. What month is it? -: b. How old are you? -: 0=Answers both questions correctly. -: 1=Answers one question correctly or patient is intubated or has orotracheal trauma. -: 2=Answers neither question correctly. 1b. Responses: 0 1c. Response to commands: a. Open and close eyes? -: b. Operator Cavity Pump and release hand? -: Credit is given despite weakness. Demonstration of task is permitted. Substitute command if hands cannot be used. -: 0=Performs both tasks correctly -: 1=Performs one task correctly -: 2=Performs neither task correctly 1c. Responses: 0 2. Gaze: Establish eye contact and instruct patient to "Follow my finger" -: 0=Normal -: 1=Partial gaze palsy. Gaze is abnormal in one or both eyes, but where forced deviation or total gaze paresis is not present. -: 2=Forced deviation or total gaze paresis. 2. Responses: 0 3. Visual [place]bell: Sees fingers in all four quadrants. -: 0=No visual loss. -: 1=Partial hemianopsia. -: 2=Complete hemianopsia. -: 3=Bilateral hemianopsia (including Cortical blindness) 3. Responses: 0 4. Facial Movement: Instruct patient to: -: a. Show me your teeth -: b. Raise your eyebrows -: c. Close your eyes -: d. Smile -: 0=Normal symmetrical movement -: 1=Minor paralysis (flattened nasolabial fold, asymmetry on smiling). -: 2=Partial paralysis (total or near total paralysis of lower face). -: 3=Complete paralysis of upper and lower face 4. Responses: 1 5. Motor functions (left arm): Alternate sides and extend each arm with palms down (90 degrees if sitting or 45 degrees for supine). -: 0=No drift;limb holds for full 10 seconds. -: 1=Drift; limb holds but drifts down before full 10 seconds, but does not hit bed. -: 2=Some effort against gravity; limb cannot get to or maintain position. -: 3=No effort against gravity; limb falls. -: 4=No movement. -: UN=Amputation, joint fusion, explain in comments. 5. Responses (left arm): 0 5. Motor Functions (right arm): Alternate sides and extend each arm with palms down (90 degrees if sitting or 45 degrees for supine). -: 0=No drift;limb holds for full 10 seconds. -: 1=Drift; limb holds but drifts down before full 10 seconds, but does not hit bed. -: 2=Some effort against gravity; limb cannot get to or maintain position. -: 3=No effort against gravity; limb falls. -: 4=No movement. -: UN=Amputation, joint fusion, explain in comments. 5. Responses (right arm): 1 6. Motor Functions (left leg): With patient lying supine, alternate sides and extend each leg (30 degrees always while supine). -: 0=No drift, leg holds position for full 5 seconds -: 1=Drift; leg falls before full 5 seconds but does not hit bed. -: 2=Some effort against gravity, leg falls to bed but some effort against gravity. -: 3=No effort against gravity, leg falls to bed immediately. -: 4=No movement. -: UN=Amputation, joint fusion; explain in comments. 6. Responses (left leg): 0 6. Motor Functions (right leg): With patient lying supine, alternate sides and extend each leg (30 degrees always while supine). -: 0=No drift, leg holds position for full 5 seconds -: 1=Drift; leg falls before full 5 seconds but does not hit bed. -: 2=Some effort against gravity, leg falls to bed but some effort against gravity. -: 3=No effort against gravity, leg falls to bed immediately. -: 4=No movement. -: UN=Amputation, joint fusion; explain in comments. 6. Responses (right leg): 0 7. Limb Ataxia: With eyes open instruct patient to: -: a. "Touch your finger to your nose". -: b. "Touch your heel to your mccracken" -: 0=Absent -: 1=Present in one limb. -: 2=Present in two limbs. -: UN=Amputation or joint fusion; explain in comments. 7. Responses: 1 7. If ataxia present choose as appropriate: Right arm 8. Sensory: Test sensation using pinprick or noxious stimuli. Test as many body parts as possible. -: 0=Normal;no sensory loss -: 1=Mile to moderate sensory loss (patient feels pin prick but is less sharp on affected side). -: 2=Severe or total sensory loss. 8. Responses: 0 9. Best Language: Instruct patient to: -: a. "Describe what you see in this picture." -: b. "Name the items in this picture." -: c. "Read these sentences." -: 0=No aphasia, normal -: 1=Mild to moderate aphasia. -: 2=Severe aphasia -: 3=Mute, global aphasia, no usable speech or auditory comprehension. 9. Responses: 0 10. Articulation, Dysarthia: Instruct patient to: -: "Read these words" or "Repeat these words" -: 0=Normal -: 1=Mild to moderate; patient may slur some words but can be understood without difficulty. -: 2=Severe; patients speech so slurred as to be unintelligible in the absence of dysphasia. -: UN=Intubated or other physical barrier, explain in comments. 10. Responses: 0 11. Extinction or inattention: 0=No abnormality -: 1= Visual, tactile, auditory, spatial, or personal inattention or extinction to bilateral simulation in one or the sensory modalities. -: 2=Profound john-inattention or john-inattention to more than one modality; does not recognize own hand. 11. Responses: 0 Total Score: 3
[2018-03-13 15:13] LABS: ABSOLUTE BASOPHILS # (AUTO) 0.1 10^3/uL (0.0-0.2); ABSOLUTE EOSINOPHILS # (AUTO) 0.1 10^3/uL (0.0-0.6); ABSOLUTE LYMPHOCYTES (AUTO) 2.8 10^3/uL (0.5-4.7); ABSOLUTE MONOCYTES (AUTO) 0.6 10^3/uL (0.1-1.4); ABSOLUTE NEUT (AUTO) 5.3 10^3/uL (1.7-8.2); BASOPHILS % (AUTO) 0.6 % (0-2); HEMATOCRIT 43.7 % (36.0-47.0); HEMOGLOBIN 14.9 g/dL (12.0-15.5); LYMPHOCYTES % (AUTO) 32.1 % (13-45); MEAN CORPUSCULAR HEMOGLOBIN 29.8 pg (27.0-33.4); MEAN CORPUSCULAR HGB CONC 34.1 g/dL (32.0-36.0); MEAN CORPUSCULAR VOLUME 87 fl (80-97); MONOCYTES % (AUTO) 6.3 % (3-13); PLATELET COUNT 319 10^3/uL (150-450); RED BLOOD COUNT 5.01 10^6/uL (3.72-5.28); RED CELL DISTRIBUTION WIDTH 13.7 % (11.5-14.0); TOTAL CELLS COUNTED % (AUTO) 100 %; WHITE BLOOD COUNT 8.8 10^3/uL (4.0-10.5)
[2018-03-13 15:14] LABS: INTERNATIONAL RATION (INR) 0.95; PARTIAL THROMBOPLASTIN TIME 25.7 SEC (23.5-35.8); PROTHROMBIN TIME 13.2 SEC (11.4-15.4)
[2018-03-13 15:20] LABS: ALANINE AMINOTRANSFERASE 46 U/L (9-52); ALBUMIN 4.1 g/dL (3.5-5.0); ALKALINE PHOSPHATASE 85 U/L (38-126); ANION GAP 7 (5-19); ASPARTATE AMINO TRANSFERASE 38 U/L (14-36); BILIRUBIN,DIRECT 0.4 mg/dL (0.0-0.4); BILIRUBIN,TOTAL 0.6 mg/dL (0.2-1.3); BLOOD UREA NITROGEN 6 mg/dL (7-20); CALCIUM 9.4 mg/dL (8.4-10.2); CARBON DIOXIDE 22 mmol/L (22-30); CHLORIDE 110 mmol/L (98-107); CREATINE KINASE 49 U/L (30-135); GLUCOSE 169 mg/dL (75-110); POTASSIUM 4.4 mmol/L (3.6-5.0); SODIUM 139.3 mmol/L (137-145); TOTAL PROTEIN 7.2 g/dL (6.3-8.2)
[2018-03-13 15:34] LABS: CREATINE KINASE MB < 0.22 ng/mL (<4.55); TROPONIN I < 0.012 ng/mL
[2018-03-13 15:47] LABS: CHOLESTEROL 192.67 mg/dL (0-200); PHOSPHORUS 3.4 mg/dL (2.5-4.5); TRIGLYCERIDES 145 mg/dL (<150)
[2018-03-13 15:56] LABS: APPEARANCE,URINE SLIGHTLY-CLOUDY; BILIRUBIN,URINE NEGATIVE (NEGATIVE); GLUCOSE, URINE NEGATIVE (NEGATIVE); KETONES,URINE TRACE mg/dL (NEGATIVE); LEUKOCYTE ESTERASE,URINE SMALL (NEGATIVE); NITRITE,URINE NEGATIVE (NEGATIVE); PROTEIN,URINE 30 mg/dL (NEGATIVE); URINE SPECIFIC GRAVITY 1.019; UROBILINOGEN,URINE NEGATIVE mg/dL (<2.0)
[2018-03-13 15:57] LABS: COLOR,URINE YELLOW
[2018-03-13 15:58] LABS: DIRECT LDL 110 mg/dL (<100)
[2018-03-13 16:09] LABS: URINE AMPHETAMINES SCREEN NEGATIVE; URINE BARBITURATES SCREEN NEGATIVE; URINE BENZODIAZEPINES SCREEN NEGATIVE; URINE COCAINE SCREEN NEGATIVE; URINE MARIJUANA (THC) SCREEN UNCONFIRMED POSITIVE; URINE METHADONE SCREEN NEGATIVE; URINE PHENCYCLIDINE SCREEN NEGATIVE
--- NOTE | 2018-03-13 16:36 | RADIOLOGY REPORT (SQ) ---
EXAM DESCRIPTION: CTA HEAD; CTA NECK COMPLETED DATE/TIME: 03/13/2018 4:10 pm REASON FOR STUDY: Right-sided weakness COMPARISON: None. TECHNIQUE: Post IV contrast scanning, thin section axial imaging through the neck and brain to evalu ate the arterial structures. Source and MIP images are saved and reviewed on PACS. Advanced 3D imaging as volume-rendering, MIPs, SSD performed? yes All CT scanners at this facility use dose modulation, iterative reconstruction, and/or weight based d osing when appropriate to reduce radiation dose to as low as reasonably achievable (ALARA). [facility]: Dose Right [facility]: CareDose [facility]: Dose Right [facility]: Teradose 4D [facility]: Somewhere CONTRAST TYPE AND DOSE: contrast/concentration: Isovue 350.00 mg/ml; Total Contrast Delivered: 70.0 ml; Total Saline Delivered: 75.0 ml RENAL FUNCTION: GFR > 60. LIMITATIONS: None. FINDINGS: CERVICAL VESSELS: The included aortic arch, common carotid, internal carotid, and bilater al vertebral arteries are patent to the skullbase. There is a left dominant vertebral system. [place]: There is calcific atherosclerosis of the bilateral distal internal carotid arteries , with approximately 50% calcific stenosis of the cavernous portion of the left internal carotid wood ry. The vessel is patent and normal in caliber distally. The anterior, middle, posterior cerebral a rteries are all patent. No evidence of aneurysm or focal stenosis. POSTERIOR CIRCULATION: The distal vertebral arteries are patent as is the basilar artery. No aneurysm . BRAIN: No gross enhancing lesions as visualized. The superior cerebral hemispheres are not included in the field of view. BONES: Intact as visualized. SINUSES: No fluid or mucosal thickening. OTHER: No other significant finding. IMPRESSION: There is calcific atherosclerosis of the bilateral distal internal carotid arteries, wit h approximately 50% calcific stenosis of the cavernous portion of the left internal carotid artery. The vessel is patent and normal in caliber distally. Otherwise normal CT angiogram of the head and n abeba. TECHNICAL DOCUMENTATION: JOB ID: [id number] Quality ID # [id number]: Final reports with documentation of one or more dose reduction techniques (e.g., Au tomated exposure control, adjustment of the mA and/or kV according to patient size, use of iterative reconstruction technique) 2010 [employer]- All Rights Reserved Reading location - IP/workstation name: [email or web address]
--- NOTE | 2018-03-13 16:36 | RADIOLOGY REPORT (SQ) ---
EXAM DESCRIPTION: CTA HEAD; CTA NECK COMPLETED DATE/TIME: 03/13/2018 4:10 pm REASON FOR STUDY: Right-sided weakness COMPARISON: None. TECHNIQUE: Post IV contrast scanning, thin section axial imaging through the neck and brain to evalu ate the arterial structures. Source and MIP images are saved and reviewed on PACS. Advanced 3D imaging as volume-rendering, MIPs, SSD performed? yes All CT scanners at this facility use dose modulation, iterative reconstruction, and/or weight based d osing when appropriate to reduce radiation dose to as low as reasonably achievable (ALARA). [facility]: Dose Right [facility]: CareDose [facility]: Dose Right [facility]: Teradose 4D [facility]: LAN-Power CONTRAST TYPE AND DOSE: contrast/concentration: Isovue 350.00 mg/ml; Total Contrast Delivered: 70.0 ml; Total Saline Delivered: 75.0 ml RENAL FUNCTION: GFR > 60. LIMITATIONS: None. FINDINGS: CERVICAL VESSELS: The included aortic arch, common carotid, internal carotid, and bilater al vertebral arteries are patent to the skullbase. There is a left dominant vertebral system. [place]: There is calcific atherosclerosis of the bilateral distal internal carotid arteries , with approximately 50% calcific stenosis of the cavernous portion of the left internal carotid wood ry. The vessel is patent and normal in caliber distally. The anterior, middle, posterior cerebral a rteries are all patent. No evidence of aneurysm or focal stenosis. POSTERIOR CIRCULATION: The distal vertebral arteries are patent as is the basilar artery. No aneurysm . BRAIN: No gross enhancing lesions as visualized. The superior cerebral hemispheres are not included in the field of view. BONES: Intact as visualized. SINUSES: No fluid or mucosal thickening. OTHER: No other significant finding. IMPRESSION: There is calcific atherosclerosis of the bilateral distal internal carotid arteries, wit h approximately 50% calcific stenosis of the cavernous portion of the left internal carotid artery. The vessel is patent and normal in caliber distally. Otherwise normal CT angiogram of the head and n abeba. TECHNICAL DOCUMENTATION: JOB ID: [id number] Quality ID # [id number]: Final reports with documentation of one or more dose reduction techniques (e.g., Au tomated exposure control, adjustment of the mA and/or kV according to patient size, use of iterative reconstruction technique) 2010 [employer]- All Rights Reserved Reading location - IP/workstation name: [email or web address]
[2018-03-13] MEDS ORDERED: LABETALOL HCL INJ 20 MG/4 ML DISP.SYRIN IV PRN (17:33)
[2018-03-13] MEDS ORDERED: ACETAMINOPHEN 325 MG TABLET PO PRN (17:33)
[2018-03-13] MEDS ORDERED: IPRATROPIUM/ALBUTEROL 0.5-2.5 MG/3 ML AMPUL NEB PRN (17:33)
[2018-03-13] MEDS ORDERED: OXYCODONE-ACETAMINOPHEN 5-325 MG TABLET PO PRN (17:33)
--- NOTE | 2018-03-13 18:36 | PDOC H&P ---
History of Present Illness Admission Date/PCP: 03/13/18 16:47 History of Present Illness: VINCENT SYED is a 52 year old female Presents with sudden onset right-sided numbness of right face. She also complained of blurry vision. Patient still has the same symptoms at the time of my exam. This started at 10:25 AM approximately 10 hours ago. She arrived in the emergency room outside the window for TPA. Patient denies any muscular weakness. She denies any palpitation or any skipped heartbeats. She did say that she had had this blurry vision about twice before within the last 3weeks but the symptoms were transient and disappeared after 30 minutes. No seek medical help at the time. She denies any prior history of CVA. She does have a history of right breast cancer for which she received radiotherapy in 2015. She last saw her oncologist last year December with a clean bill of health. Patient denies any history of hypertension, or any kind of vasculitis. I will alveoli V honey Past Medical History Cardiac Medical History: Reports: Hyperlipidema Denies: Coronary Artery Disease, Myocardial Infarction, Hypertension Pulmonary Medical History: Reports: Bronchitis Denies: Asthma, Chronic Obstructive Pulmonary Disease (COPD) - SOB WHEN LYING ON SIDE AND BENDING OVER, HAS A SMOKERS COUGH, Pneumonia, Tuberculosis Neurological Medical History: Denies: Seizures Malignancy Medical History: Reports: Breast Cancer - Right, diagnosed 15 months ago, treated with surgery and radiation GI Medical History: Reports: Gastroesophageal Reflux Disease Musculoskeltal Medical History: Denies: Arthritis Psychiatric Medical History: Reports: Bipolar Disorder, Depression Hematology: Denies: Anemia Past Surgical History Past Surgical History: Reports: Orthopedic Surgery - back surgery Social History Information Source: Patient Smoking Status: Current Every Day Smoker Hx Recreational Drug Use: Yes Hx Prescription Drug Abuse: No - Advance Directive Resuscitation Status: Full Code Family History Family History: Reviewed & Not Pertinent Parental Family History Reviewed: Yes Children Family History Reviewed: Yes Sibling(s) Family History Reviewed.: Yes Medication/Allergy Home Medications: Gabapentin [Neurontin 300 mg Capsule] 300 mg PO QHS 03/13/18 Allergies/Adverse Reactions: Penicillins Allergy (Unknown, Verified 03/13/18 15:26) Review of Systems All systems: reviewed and no additional remarkable complaints except as stated Cardiovascular: ABSENT: chest pain, dyspnea on exertion, orthropnea, palpitations Physical Exam Vital Signs: Temp Pulse Resp BP Pulse Ox 98.5 F 78 18 120/83 99 03/13/18 15:00 03/13/18 18:00 03/13/18 18:01 03/13/18 18:01 03/13/18 18:01 Intake & Output 03/12/18 03/13/18 03/14/18 06:59 06:59 06:59 Weight 107.229 kg General appearance: PRESENT: no acute distress, morbidly obese, well-developed, well-nourished Head exam: PRESENT: atraumatic, normocephalic Eye exam: PRESENT: conjunctiva pink, EOMI, PERRLA. ABSENT: scleral icterus Ear exam: PRESENT: normal external ear exam Mouth exam: PRESENT: moist, tongue midline Neck exam: ABSENT: carotid bruit, JVD, lymphadenopathy, thyromegaly Respiratory exam: PRESENT: clear to auscultation deb. ABSENT: rales, rhonchi, wheezes Cardiovascular exam: PRESENT: RRR. ABSENT: diastolic murmur, rubs, systolic murmur Pulses: PRESENT: normal dorsalis pedis pul Vascular exam: PRESENT: normal capillary refill GI/Abdominal exam: PRESENT: normal bowel sounds, soft. ABSENT: distended, guarding, mass, organolmegaly, rebound, tenderness Rectal exam: PRESENT: deferred Extremities exam: PRESENT: full ROM. ABSENT: calf tenderness, clubbing, pedal edema Neurological exam: PRESENT: alert, awake, oriented to person, oriented to place, oriented to time, oriented to situation, other - no facial droop, tongue slightly deviated to the left, dysarthria, no muscle weakness. ABSENT: motor sensory deficit Psychiatric exam: PRESENT: appropriate affect, normal mood. ABSENT: homicidal ideation, suicidal ideation Skin exam: PRESENT: dry, intact, warm. ABSENT: cyanosis, rash Results Laboratory Results: 03/13/18 14:30 03/13/18 14:30 03/13/18 03/13/18 03/13/18 14:30 14:30 14:30 WBC 8.8 RBC 5.01 Hgb 14.9 Hct 43.7 MCV 87 MCH 29.8 MCHC 34.1 RDW 13.7 Plt Count 319 Seg Neutrophils % 60.0 Lymphocytes % 32.1 Monocytes % 6.3 Eosinophils % 1.0 Basophils % 0.6 Absolute Neutrophils 5.3 Absolute Lymphocytes 2.8 Absolute Monocytes 0.6 Absolute Eosinophils 0.1 Absolute Basophils 0.1 Sodium 139.3 Potassium 4.4 Chloride 110 H Carbon Dioxide 22 Anion Gap 7 BUN 6 L Creatinine 0.82 Est GFR ( Amer) > 60 Est GFR (Non-Af Amer) > 60 Glucose 169 H Calcium 9.4 Phosphorus 3.4 Magnesium 2.1 Total Bilirubin 0.6 AST 38 H ALT 46 Alkaline Phosphatase 85 Total Protein 7.2 Albumin 4.1 Triglycerides 145 Cholesterol 192.67 LDL Cholesterol Direct 110 H VLDL Cholesterol 29.0 HDL Cholesterol 37 L Urine Color Urine Appearance Urine pH Ur Specific [place] Urine Protein Urine Glucose (UA) Urine Ketones Urine Blood Urine Nitrite Ur Leukocyte Esterase Urine WBC (Auto) Urine RBC (Auto) 03/13/18 15:42 WBC RBC Hgb Hct MCV MCH MCHC RDW Plt Count Seg Neutrophils % Lymphocytes % Monocytes % Eosinophils % Basophils % Absolute Neutrophils Absolute Lymphocytes Absolute Monocytes Absolute Eosinophils Absolute Basophils Sodium Potassium Chloride Carbon Dioxide Anion Gap BUN Creatinine Est GFR ( Amer) Est GFR (Non-Af Amer) Glucose Calcium Phosphorus Magnesium Total Bilirubin AST ALT Alkaline Phosphatase Total Protein Albumin Triglycerides Cholesterol LDL Cholesterol Direct VLDL Cholesterol HDL Cholesterol Urine Color YELLOW Urine Appearance SLIGHTLY-CLOUDY Urine pH 5.0 Ur Specific [place] 1.019 Urine Protein 30 H Urine Glucose (UA) NEGATIVE Urine Ketones TRACE H Urine Blood NEGATIVE Urine Nitrite NEGATIVE Ur Leukocyte Esterase SMALL H Urine WBC (Auto) 2 Urine RBC (Auto) 1 03/13/18 03/13/18 14:30 14:30 Creatine Kinase 49 CK-MB (CK-2) < 0.22 Troponin I < 0.012 Impressions: Chest X-Ray 03/13/18 00:00 IMPRESSION: No acute abnormality of the lungs. Head CT 03/13/18 00:00 IMPRESSION: No CT evidence of acute stroke or hemorrhage. EVIDENCE OF ACUTE STROKE: NO. Findings reported to Dr. Diaz, ER, at 1435 hours, 03/13/2018 Head CTA 03/13/18 15:10 IMPRESSION: There is calcific atherosclerosis of the bilateral distal internal carotid arteries, with approximately 50% calcific stenosis of the cavernous por tion of the left internal carotid artery. The vessel is patent and normal in caliber distally. Otherwise normal CT angiogram of the head and neck. Neck CTA 03/13/18 15:10 IMPRESSION: There is calcific atherosclerosis of the bilateral distal internal carotid arteries, with approximately 50% calcific stenosis of the cavernous portion of the left internal carotid artery. The vessel is patent and normal in caliber distally. Otherwise normal CT angiogram of the head and neck. Assessment & Plan - Diagnosis (1) Acute cerebrovascular accident (CVA) Is this a current diagnosis for this admission?: Yes Plan: Although CT scan of the brain is negative patient symptoms are consistent with a stroke. Obtain MRI as well as echocardiogram in a.m. EKG shows no arrhythmias but I suspect patient would benefit from a 30-day event monitor at discharge. To be placed on aspirin, statin,lovenox. (2) Breast cancer, right Is this a current diagnosis for this admission?: Yes Plan: This is apparently in remission. CT scan shows no mass. (3) Tobacco abuse disorder Is this a current diagnosis for this admission?: Yes Plan: Smoking cessation counseling (4) Morbid obesity with BMI of 40.0-44.9, adult Is this a current diagnosis for this admission?: Yes Plan: Patient will be advised on the need to lose weight - Time Time Spent: 50 to 70 Minutes Smoking Cessation Education: 3 to 10 minutes Anticipated discharge: Home Within: within 48 hours - Inpatient Certification Based on my medical assessment, after consideration of the patient's comorbidities, presenting symptoms, or acuity I expect that the services needed warrant INPATIENT care.: Yes Medical Necessity: Need for Neurological Checks, Risk of Complication if Not Cared For in Hospital
--- NOTE | 2018-03-13 20:34 | RADIOLOGY REPORT (SQ) ---
MR BRAIN WITHOUT IV CONTRAST HISTORY: Altered mental status. Evaluate for acute infarction. COMPARISON: CT head from earlier the same day. TECHNIQUE: Multisequence, multiplanar MR imaging of the brain was performed without the administration of intravenous gadolinium. FINDINGS: The ventricles, sulci and cisterns are age appropriate. No restricted diffusion to indicate acute infarction. No intracranial hemorrhage, extra-axial fluid collection, mass effect, or midline shift. The paranasal sinuses and mastoid air cells are clear. The orbits are unremarkable. The vascular flow voids are preserved. The skull is intact. IMPRESSION: No evidence of acute infarction.
--- NOTE | 2018-03-13 20:49 | EKG REPORT ---
SEVERITY:- BORDERLINE ECG - SINUS RHYTHM PROBABLE LEFT ATRIAL ABNORMALITY : Confirmed by: Marino Peters 13-Mar-2018 20:49:01
[2018-03-13] MEDS: FAMOTIDINE 20 MG TABLET PO SCH (21:45)
[2018-03-13] MEDS ORDERED: ATORVASTATIN CALCIUM 20 MG TABLET PO SCH (22:00)
[2018-03-14 06:54] LABS: CHOLESTEROL 155.13 mg/dL (0-200); TRIGLYCERIDES 143 mg/dL (<150)
[2018-03-14 07:05] LABS: DIRECT LDL 89 mg/dL (<100)
[2018-03-14] MEDS: FAMOTIDINE 20 MG TABLET PO SCH (09:12)
[2018-03-14] MEDS ORDERED: ENOXAPARIN SODIUM INJ 40 MG/0.4 ML DISP.SYRIN SUBCUT SCH (10:00)
[2018-03-14] MEDS ORDERED: ASPIRIN 81 MG TABLET, ENT COATED PO SCH (10:00)
[2018-03-14] MEDS ORDERED: DOCUSATE SODIUM 100 MG CAPSULE PO SCH (10:00)
--- NOTE | 2018-03-14 13:43 | RADIOLOGY REPORT (SQ) ---
EXAM DESCRIPTION: CAROTID DOPPLER COMPLETED DATE/TIME: 03/14/2018 12:26 pm REASON FOR STUDY: Acute CVA COMPARISON: None. TECHNIQUE: Grayscale ultrasound, Doppler velocity and spectra, and color Doppler images acquired of the extra-cranial carotid and vertebral arteries. Images stored on PACS. LIMITATIONS: None. FINDINGS: RIGHT CAROTID CCA Velocities: Within normal limits. ICA Velocities Peak systolic 1.24 m/s. End diastolic 0.58 m/s. Proximal ICA/CCA peak systolic ratio 1.6. Spectra normal. No significant plaque. LEFT CAROTID CCA Velocities: Within normal limits. ICA Velocities Peak systolic 1.12 m/s. End diastolic 0.55 m/s. Proximal ICA/CCA peak systolic ratio 1.5. Spectra normal. No significant plaque. VERTEBRAL ARTERIES: Antegrade flow. Normal waveforms. SUBCLAVIAN ARTERIES: No finding. OTHER: No other significant finding. IMPRESSION: NO HEMODYNAMICALLY SIGNIFICANT STENOSIS. COMMENT: Quality ID #[id number]: Velocity criteria are extrapolated from the diameter data as defined by t he Society of Radiologists in Ultrasound Consensus Conference. Radiology 2003: 229; 340-346. TECHNICAL DOCUMENTATION: JOB ID: [id number] [employer]- All Rights Reserved Reading location - IP/workstation name: [email or web address]
--- NOTE | 2018-03-14 16:47 | PDOC DISCHARGE SUMMARY ---
General - Admit/Disc Date/PCP Admission Date/Primary Care Provider: 03/13/18 16:47 Discharge Date: 03/14/18 - Discharge Diagnosis (1) TIA (transient ischemic attack) Is this a current diagnosis for this admission?: Yes (2) Breast cancer, right Is this a current diagnosis for this admission?: Yes (3) Tobacco abuse disorder Is this a current diagnosis for this admission?: Yes (4) Morbid obesity with BMI of 40.0-44.9, adult Is this a current diagnosis for this admission?: Yes - Additional Information Resuscitation Status: Full Code Discharge Diet: Regular Discharge Activity: Activity As Tolerated Home Medications: Gabapentin [Neurontin 300 mg Capsule] 300 mg PO TID 03/13/18 Aspirin [Ecotrin 81 mg EC Tablet] 162 mg PO DAILY tabec 03/14/18 History of Present Illness History of Present Illness: VINCENT SYED is a 52 year old female Presents with sudden onset right-sided numbness of right face. She also compla ined of blurry vision. Patient still has the same symptoms at the time of my exam. This started at 10:25 AM approximately 10 hours ago. She arrived in the emergency room outside the window for TPA. Patient denies any muscular weakness. She denies any palpitation or any skipped heartbeats. She did say that she had had this blurry vision about twice before within the last 3weeks but the symptoms were transient and disappeared after 30 minutes. No seek medical help at the time. She denies any prior history of CVA. She does have a history of right breast cancer for which she received radiotherapy in 2016. She last saw her oncologist last year December with a clean bill of health. Patient denies any history of hypertension, or any kind of vasculitis. I will luther V liss Hospital Course Hospital Course: Patient was admitted with numbness and tingling of the right side of her face. She was thought to have an acute CVA given her symptoms. She also had some dysarthria. This was also associated with visual disturbances. Patient was m onitored on telemetry floor. She had CT scan of the brain done as well as MRI which were both negative. CTA of the neck showed bilateral calcified stenosis of less than 50% and no other significant stenosis. Echocardiogram is currently pending at this time however patient symptoms of completely resolved. She has been seen by physical therapy with no gait disturbances. There are no swallowing disturbances. Blood pressure has been stable since admission. She was treated with aspirin and she was placed on Lipitor although this is been discontinued and I would have patient follow-up with her primary care physician for review to restart this if indicated. Patient was also benefit from a 30-day event monitor and this will be set up as outpatient with Dr. Martinez as she has been asymptomatic and with resolution of her presenting symptoms and hemodynamic stability she has been discharged home for outpatient follow-up. It is very likely that patient may have had a transient ischemic attack and she has been advised for need to stop smoking immediately. Although she has a history of breast cancer there was no evidence of any brain metastases or any other metastasis from imaging studies done Physical Exam Vital Signs: Temp Pulse Resp BP Pulse Ox 97.7 F 76 20 122/82 99 03/14/18 11:01 03/14/18 13:00 03/14/18 13:00 03/14/18 13:00 03/14/18 13:00 Intake & Output 03/13/18 03/14/18 03/15/18 06:59 06:59 06:59 Intake Total 720 Balance 720 Weight 107.2 kg General appearance: PRESENT: no acute distress, morbidly obese, well-developed, well-nourished Head exam: PRESENT: atraumatic, normocephalic Eye exam: PRESENT: conjunctiva pink, EOMI, PERRLA. ABSENT: scleral icterus Ear exam: PRESENT: normal external ear exam Mouth exam: PRESENT: moist, tongue midline Neck exam: ABSENT: carotid bruit, JVD, lymphadenopathy, thyromegaly Respiratory exam: PRESENT: clear to auscultation deb. ABSENT: rales, rhonchi, wheezes Cardiovascular exam: PRESENT: RRR. ABSENT: diastolic murmur, rubs, systolic murmur Pulses: PRESENT: normal dorsalis pedis pul Vascular exam: PRESENT: normal capillary refill GI/Abdominal exam: PRESENT: normal bowel sounds, soft. ABSENT: distended, guarding, mass, organolmegaly, rebound, tenderness Rectal exam: PRESENT: deferred Extremities exam: PRESENT: full ROM. ABSENT: calf tenderness, clubbing, pedal edema Neurological exam: PRESENT: alert, awake, oriented to person, oriented to place, oriented to time, oriented to situation, CN II-XII grossly intact, normal gait. ABSENT: motor sensory deficit Psychiatric exam: PRESENT: appropriate affect, normal mood. ABSENT: homicidal ideation, suicidal ideation Skin exam: PRESENT: dry, intact, warm. ABSENT: cyanosis, rash Results Laboratory Results: 03/13/18 14:30 03/13/18 14:30 03/14/18 06:12 Triglycerides 143 Cholesterol 155.13 LDL Cholesterol Direct 89 VLDL Cholesterol 29.0 HDL Cholesterol 33 L 03/13/18 03/13/18 03/13/18 14:30 14:30 20:35 Creatine Kinase 49 CK-MB (CK-2) < 0.22 Troponin I < 0.012 < 0.012 03/14/18 03/14/18 02:44 08:47 Creatine Kinase CK-MB (CK-2) Troponin I < 0.012 < 0.012 EKG Comments: Normal sinus rhythm Impressions: Chest X-Ray 03/13/18 00:00 IMPRESSION: No acute abnormality of the lungs. Head CT 03/13/18 00:00 IMPRESSION: No CT evidence of acute stroke or hemorrhage. EVIDENCE OF ACUTE STROKE: NO. Findings reported to Dr. Diaz, ER, at 1435 hours, 03/13/2018 Head MRI 03/13/18 00:00 IMPRESSION: No evidence of acute infarction. Head CTA 03/13/18 15:10 IMPRESSION: There is calcific atherosclerosis of the bilateral distal internal carotid arteries, with approximately 50% calcific stenosis of the cavernous portion of the left internal carotid artery. The vessel is patent and normal in caliber distally. Otherwise normal CT angiogram of the head and neck. Neck CTA 03/13/18 15:10 IMPRESSION: There is calcific atherosclerosis of the bilateral distal internal carotid arteries, with approximately 50% calcific stenosis of the cavernous portion of the left internal carotid artery. The vessel is patent and normal in caliber distally. Otherwise normal CT angiogram of the head and neck. Carotid Doppler Study 03/14/18 00:00 IMPRESSION: NO HEMODYNAMICALLY SIGNIFICANT STENOSIS. Qualifiers - * PATIENT BEING DISCHARGED WITH ANY OF THE FOLLOWING DIAGNOSIS: No Stroke Pt being discharged on Anti-thrombolytic therapy?: Yes Stroke Pt being discharged on Anti-coagulation therapy?: No Reason(s) for not prescribing Anti-coagulation therapy:: Procedure not indicated Plan Discharge Plan: Patient to follow-up with Dr. Oconnor as outpatient for completion of all the tests including a 30-day event monitor and review of echocardiogram result. Time Spent: Less than 30 Minutes
[2018-03-14 17:40] VITALS: BP 115/65
--- NOTE | 2018-03-14 19:28 | XCELERA REPORT ---
[address] [address] Transthoracic Echocardiogram Report Name: VINCENT SYED Age: 52 yrs Gender: Female : 1965 Patient Status: Inpatient Patient Location: [address] [place] [address] Study Date: 03/14/2018 11:48 AM Procedure: A complete two-dimensional transthoracic echocardiogram was performed (2D, M-mode, spectral and color flow Doppler). The study was technically difficult with many images being suboptimal in quality. Reason For Study: CVA Ordering Physician: JOSE ESCALANTE Performed By: Aleks Gambino Interpretation Summary The left ventricular ejection fraction is within normal limits. There is normal left ventricular wall thickness. The left ventricle is grossly normal size. LV diastolic function could not be adequately assessed. Regional wall motion abnormalities cannot be excluded due to limited visualization. Right ventricular function cannot be assessed due to poor image quality. The left atrial size is normal. The right atrium is normal. There is a trace amount of mitral regurgitation There is no mitral valve stenosis. No aortic regurgitation is present. There is no aortic valve stenosis There is a trace or physiologic amount of tricuspid regurgitation Tricuspid regurgitation jet envelope not well defined to measure RV systolic pressure accurately. The aortic root is not well visualized but is probably normal size. The inferior vena cava was not well visualized Minimal pericardial effusion. MMode/2D Measurements & Calculations RVDd: 3.2 cm LVIDd: 4.3 cm FS: 25.2 % Ao root diam: 2.8 cm IVSd: 0.63 cm LVIDs: 3.3 cm EDV(Teich): 85.3 ml Ao root area: 6.3 cm2 LVPWd: 0.65 cm ESV(Teich): 42.6 ml LA dimension: 2.8 cm EF(Teich): 50.0 % LVOT diam: 2.2 cm LVOT area: 3.6 cm2 Doppler Measurements & Calculations MV E max sheryl: MV P1/2t max sheryl: Ao V2 max: LV V1 max P.9 cm/sec 99.3 cm/sec 92.3 cm/sec 2.3 mmHg MV A max sheryl: MV P1/2t: 52.0 msec Ao max P.4 mmHg LV V1 max: 62.7 cm/sec 76.0 cm/sec MV E/A: 1.3 MVA(P1/2t): 4.2 cm2 PRICILLA(V,D): 3.0 cm2 MV dec slope: 559.5 cm/sec2 MV dec time: 0.19 sec PA V2 max: PI end-d sheryl: MV P1/2t-pr_phl: 62.7 cm/sec 109.9 cm/sec 52.0 msec PA max P.6 mmHg Left Ventricle The left ventricle is grossly normal size. There is normal left ventricular wall thickness. The left ventricular ejection fraction is within normal limits. LV diastolic function could not be adequately assessed. Regional wall motion abnormalities cannot be excluded due to limited visualization. Right Ventricle The right ventricle is grossly normal size. Right ventricular function cannot be assessed due to poor image quality. Atria The right atrium is normal. The left atrial size is normal. Interarterial septum not well visualized and not well dopplered. Cannot comment on ASD/PFO presence. Mitral Valve The mitral valve is grossly normal. There is no mitral valve stenosis. There is a trace amount of mitral regurgitation. Aortic Valve The aortic valve is not well visualized secondary to technical limitations. There is no aortic valve stenosis. No aortic regurgitation is present. Tricuspid Valve The tricuspid valve is not well visualized, but is grossly normal. There is no tricuspid stenosis. There is a trace or physiologic amount of tricuspid regurgitation. Tricuspid regurgitation jet envelope not well defined to measure RV systolic pressure accurately. Pulmonic Valve The pulmonic valve is not well visualized. Great Vessels The aortic root is not well visualized but is probably normal size. The inferior vena cava was not well visualized. Effusions Minimal pericardial effusion. : JOSE ESCALANTE > Marino Peters
== END 2018-03-14 17:52 | disposition home or self-care (01) ==
LOC: ER 14:06 → INTOOBSV 16:47 → EH 16:47 → 3N 19:22
PROVIDERS: ADMIT Internal Medicine; ATTEND Internal Medicine
PROC: HZ31ZZZ Individual Counseling for Substance Abuse Treatment, Behavioral (ICD-10-PCS; principal; 2018-03-13)
PROC: 3E02340 Introduction of Influenza Vaccine into Muscle, Percutaneous Approach (ICD-10-PCS; 2018-03-14)
DX: G45.9 Transient cerebral ischemic attack, unspecified (principal); Z85.3 Personal history of malignant neoplasm of breast; E66.01 Morbid (severe) obesity due to excess calories; I65.23 Occlusion and stenosis of bilateral carotid arteries; F17.210 Nicotine dependence, cigarettes, uncomplicated; R07.89 Other chest pain; F12.10 Cannabis abuse, uncomplicated; G89.29 Other chronic pain; M54.9 Dorsalgia, unspecified; R27.0 Ataxia, unspecified; Z68.41 Body mass index [BMI] 40.0-44.9, adult; Z79.82 Long term (current) use of aspirin; Z79.899 Other long term (current) drug therapy; Z92.3 Personal history of irradiation; Z23 Encounter for immunization
CPT/HCPCS: 93005; 99406; 99291; 36415 ×2; 82553; 82550; 83735; 84100; 85025; 85610; 85730; 80053; 81001; 84484 ×2; 80307; 80061 ×2; 93306; 93880; 70551; 71045; 70450; 70496; 70498; 90686; 93010; 97163; J1650; J3490 ×2

== ENCOUNTER 2018-05-05 14:50 | Emergency (ER) | payer SELFPAY ==
--- NOTE | 2018-05-05 15:41 | ER Document Report ---
ED Psych Disorder / Suicide <OCTAVIO ABAD - Last Filed: 05/05/18 18:24> - General TRAVEL OUTSIDE OF THE [place] IN LAST 30 DAYS: No <MIRELILE GU - Last Filed: 05/05/18 20:03> - General Chief Complaint: Psych Problem Stated Complaint: PSYCH EVAL Time Seen by Provider: 05/05/18 15:39 Primary Care Provider: [facility] [Provider Group] - Follow up as needed Notes: Patient is here because she says that her mental state is not good. She says that she has been feeling suicidal for the past couple of days. Says she is having a lot of guilty feelings. In the past, patient has been on medications for bipolar disorder, but does not have any now. She does take gabapentin for neuropathy. Patient is difficult to get other history. She says she was in this hospital a couple months ago because she was had either a stroke or heart attack, but does not remember which. Denies difficulty breathing. Denies chest pain. Denies fever. Currently wearing a Holter monitor. (MIREILLE GU) - Related Data Allergies/Adverse Reactions: Penicillins Allergy (Unknown, Verified 03/13/18 15:26) Past Medical History - Social History Smoking Status: Current Every Day Smoker Family History: Reviewed & Not Pertinent Patient has suicidal ideation: Yes Patient has homicidal ideation: No - Past Medical History Cardiac Medical History: Reports: Hx Hypercholesterolemia Pulmonary Medical History: Reports: Hx Bronchitis Renal/ Medical History: Reports: Hx Ovarian Cysts - Right-sided Malignancy Medical History: Reports: Hx Breast Cancer - Right, diagnosed 15 months ago, treated with surgery and radiation GI Medical History: Reports: Hx Gastroesophageal Reflux Disease Psychiatric Medical History: Reports: Hx Anxiety, Hx Bipolar Disorder, Hx Depression, Hx Schizophrenia Past Surgical History: Reports: Hx Breast Surgery - right lumpectomy, Hx Gynecologic Surgery - ovarian cyst removal, Hx Orthopedic Surgery - back surgery - Immunizations Hx Diphtheria, Pertussis, Tetanus Vaccination: - UNSURE <MIREILLE GU - Last Filed: 05/05/18 20:03> Review of Systems <MIREILLE GU - Last Filed: 05/05/18 20:03> - Review of Systems Notes: REVIEW OF SYSTEMS: CONSTITUTIONAL : Denies fever. EENT: Denies eye, ear, nose or mouth or throat pain or other symptoms. CARDIOVASCULAR: Denies chest pain. Patient says that she is wearing a Holter monitor for a month. RESPIRATORY: Denies cough, chest congestion, or shortness of breath. GASTROINTESTINAL: Denies abdominal pain or nausea, vomiting, or diarrhea. GENITOURINARY: Denies difficulty or painful urinating, urinary frequency, blood in urine. MUSCULOSKELETAL: Denies back or neck pain. Denies joint pain or swelling. SKIN: Denies rash or skin lesions. NEUROLOGICAL: Denies LOC or altered mental status. Denies headache. Denies sensory loss or motor deficits. Neuropathic pain of the lower extremities. ALL OTHER SYSTEMS REVIEWED AND NEGATIVE. (MIREILLE GU) Physical Exam - Vital signs Interpretation: Normal <MIREILLE GU - Last Filed: 05/05/18 20:03> - Vital signs Notes: PHYSICAL EXAMINATION: GENERAL: Well-appearing, in no acute distress. May have been tearful and crying, although not doing so during my exam. Seems sad. HEAD: Atraumatic, normocephalic. EYES: Pupils equal round and reactive to light, extraocular movements intact. ENT: oropharynx clear without exudates. Moist mucous membranes. NECK: Normal range of motion, supple. LUNGS: Breath sounds clear and equal bilaterally. HEART: Regular rate and rhythm without murmurs. ABDOMEN: Soft, nontender. No guarding or rebound. No masses. BACK: No tenderness throughout entire back. EXTREMITIES: Normal range of motion without pain. NEUROLOGICAL: Normal speech, normal gait. Normal sensory, motor, and reflex exams. Awake, alert, and oriented x3. PSYCH: Normal mood, normal affect. SKIN: Warm, dry, no rashes. (MIREILLE GU) Course - Laboratory Result Diagrams: 05/05/18 18:15 05/05/18 18:15 <OCTAVIO ABAD - Last Filed: 05/05/18 18:24> - Laboratory Result Diagrams: 05/05/18 18:15 05/05/18 18:15 <MIREILLE GU - Last Filed: 05/05/18 20:03> - Re-evaluation Re-evalutation: 05/05/18 20:02 Lab studies all are essentially normal. (MIREILLE GU) - Laboratory Laboratory results interpreted by me: 05/05/18 05/05/18 18:15 18:23 Carbon Dioxide 20 L Est GFR (Non-Af Amer) 56 L Glucose 130 H Urine Ketones TRACE H Ur Leukocyte Esterase SMALL H Salicylates < 1.0 L Acetaminophen < 10 L Discharge <OCTAVIO ABAD - Last Filed: 05/05/18 18:24> <MIREILLE GU - Last Filed: 05/05/18 20:03> - Discharge Clinical Impression: Borderline personality disorder, Bipolar disorder Condition: Stable Disposition: HOME, SELF-CARE Additional Instructions: You have been evaluated and assessed at [facility] Emergency Department by both the medical and behavioral health teams after presenting for suicidal thoughts and are now deemed appropriate for discharge. While in the ED, you received an in itial medical screening, lab work, EKG, medications, direct staff observation, clinical evaluation, physician assessment, and outpatient resources. You were cleared from both services and record review revealed a history of similar visits Mobile crisis resources were provided to you for when these situations arise. You are encouraged to develop positive coping skills through outpatient counseling with [facility] or another provider of your choosing. A list of local mental health providers was given to you. Please follow up with your immigration attorney and [employer] as discussed at your visit. Bipolar Disorder Bipolar disorder is also called manic-depressive disorder. Depression alternates with brain hyperactivity called chepe. Each phase lasts from several days to a few weeks. We don't know exactly what causes bipolar disorder, but it's treatable. During the "manic phase," you may feel elated and energetic. You may have racing thoughts, rapid speech, increased activity, and grandiose ideas. During this time, you may not realize how poor your judgement is. Inappropriate s pending, drug abuse, excessive alcohol use, marriage problems, and irresponsible sexual behavior are common during the manic phase. During the "depressive phase," you might feel depressed, guilty, worthless, fatigued, and unable to concentrate. You might have thoughts of suicide. Good treatments are available for bipolar disorder. [place] is a classic drug for bipolar disorder, and is still often useful. If the manic phase is very mild, an antidepressant alone can be prescribed. If the manic phase is very severe, an antipsychotic medicine (such as Haldol) may be needed. The treatment must be matched to your symptoms, so it's important to work closely with your psychiatric care provider. Contact your physician, the hospital emergency center, crisis line, or your counsellor if you are losing control or having self-destructive thoughts. Referrals: [facility] [Provider Group] - Follow up as needed
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
[2018-05-05 18:30] LABS: ABSOLUTE BASOPHILS # (AUTO) 0.1 10^3/uL (0.0-0.2); ABSOLUTE EOSINOPHILS # (AUTO) 0.1 10^3/uL (0.0-0.6); ABSOLUTE LYMPHOCYTES (AUTO) 3.3 10^3/uL (0.5-4.7); ABSOLUTE MONOCYTES (AUTO) 0.5 10^3/uL (0.1-1.4); ABSOLUTE NEUT (AUTO) 6.2 10^3/uL (1.7-8.2); BASOPHILS % (AUTO) 1.2 % (0-2); EOSINOPHILS % (AUTO) 0.5 % (0-6); HEMATOCRIT 41.8 % (36.0-47.0); HEMOGLOBIN 14.4 g/dL (12.0-15.5); LYMPHOCYTES % (AUTO) 32.7 % (13-45); MEAN CORPUSCULAR HEMOGLOBIN 30.1 pg (27.0-33.4); MEAN CORPUSCULAR HGB CONC 34.4 g/dL (32.0-36.0); MEAN CORPUSCULAR VOLUME 88 fl (80-97); MONOCYTES % (AUTO) 4.6 % (3-13); PLATELET COUNT 354 10^3/uL (150-450); RED BLOOD COUNT 4.77 10^6/uL (3.72-5.28); RED CELL DISTRIBUTION WIDTH 13.7 % (11.5-14.0); TOTAL CELLS COUNTED % (AUTO) 100 %; WHITE BLOOD COUNT 10.2 10^3/uL (4.0-10.5)
[2018-05-05 18:55] LABS: ALANINE AMINOTRANSFERASE 31 U/L (9-52); ALBUMIN 4.6 g/dL (3.5-5.0); ALKALINE PHOSPHATASE 115 U/L (38-126); ASPARTATE AMINO TRANSFERASE 28 U/L (14-36); BILIRUBIN,DIRECT 0.4 mg/dL (0.0-0.4); BILIRUBIN,TOTAL 0.5 mg/dL (0.2-1.3); BLOOD UREA NITROGEN 14 mg/dL (7-20); CARBON DIOXIDE 20 mmol/L (22-30); GLUCOSE 130 mg/dL (75-110); POTASSIUM 4.4 mmol/L (3.6-5.0); SODIUM 139.4 mmol/L (137-145)
[2018-05-05 18:57] LABS: APPEARANCE,URINE SLIGHTLY-CLOUDY; BILIRUBIN,URINE NEGATIVE (NEGATIVE); COLOR,URINE YELLOW; GLUCOSE, URINE NEGATIVE (NEGATIVE); KETONES,URINE TRACE mg/dL (NEGATIVE); LEUKOCYTE ESTERASE,URINE SMALL (NEGATIVE); NITRITE,URINE NEGATIVE (NEGATIVE); PROTEIN,URINE NEGATIVE (NEGATIVE); URINE SPECIFIC GRAVITY 1.016; UROBILINOGEN,URINE NEGATIVE mg/dL (<2.0)
[2018-05-05 19:08] LABS: ANION GAP 12 (5-19); CHLORIDE 107 mmol/L (98-107)
[2018-05-05 19:12] LABS: URINE AMPHETAMINES SCREEN NEGATIVE; URINE BARBITURATES SCREEN NEGATIVE; URINE BENZODIAZEPINES SCREEN NEGATIVE; URINE COCAINE SCREEN NEGATIVE; URINE MARIJUANA (THC) SCREEN UNCONFIRMED POSITIVE; URINE METHADONE SCREEN NEGATIVE; URINE PHENCYCLIDINE SCREEN NEGATIVE
[2018-05-05 19:32] LABS: ACETAMINOPHEN < 10 ug/mL (10-30); ALCOHOL < 10 mg/dL (NONE DETECTED); SALICYLATE < 1.0 mg/dL (2.0-20.0)
== END 2018-05-05 20:00 | disposition home or self-care (01) ==
LOC: ER 14:50
DX: F31.9 Bipolar disorder, unspecified (principal); F60.3 Borderline personality disorder; R45.851 Suicidal ideations; G62.9 Polyneuropathy, unspecified; Z79.899 Other long term (current) drug therapy; F17.200 Nicotine dependence, unspecified, uncomplicated; Z88.0 Allergy status to penicillin
CPT/HCPCS: 36415; 80053; 80307; 81001; 85025; 99285

== ENCOUNTER 2018-05-22 16:23 | Emergency (ER) | payer SELFPAY ==
[2018-05-22] MEDS ORDERED: DOCUSATE SODIUM 100 MG CAPSULE LFT_EAR ONE (16:38)
[2018-05-22] MEDS ORDERED: IBUPROFEN 800 MG TABLET PO ONE (16:45)
[2018-05-22] MEDS ORDERED: DOXYCYCLINE HYCLATE 100 MG TABLET PO ONE (16:45)
--- NOTE | 2018-05-22 16:46 | ER Document Report ---
ED General - General Chief Complaint: Ear Pain Stated Complaint: EAR PAIN Time Seen by Provider: 05/22/18 16:37 Primary Care Provider: AGNES GODFREY MD [ACTIVE STAFF] - Follow up as needed Mode of Arrival: Ambulatory Information source: Patient Notes: 52-year-old female presents to ED for complaint of clogged ears and decreased hearing times 2 weeks. She denies any pain to the ears but states she would like them cleared out. Patient also complains of an abscess to the labial and mons pubic area. She states she has had them in the past. Patient is alert meeta ented respirations regular and unlabored speaking in full sentences walks uneven gait. TRAVEL OUTSIDE OF THE [place] IN LAST 30 DAYS: No - HPI Onset: Other - 2 weeks Onset/Duration: Gradual, Worse Quality of pain: Pressure, Sharp Severity: Moderate Pain Level: 4 Associated symptoms: Other - Pressure to her ears, vaginal sores x2 Exacerbated by: Walking Relieved by: Denies Similar symptoms previously: Yes Recently seen / treated by doctor: No - Related Data Allergies/Adverse Reactions: Penicillins Allergy (Unknown, Verified 03/13/18 15:26) Past Medical History - General Information source: Patient - Social History Smoking Status: Former Smoker Frequency of alcohol use: Occasional Drug Abuse: Marijuana - Once or twice a week Lives with: Family Family History: Reviewed & Not Pertinent Patient has suicidal ideation: No Patient has homicidal ideation: No - Past Medical History Cardiac Medical History: Reports: Hx Hypercholesterolemia Pulmonary Medical History: Reports: Hx Bronchitis EENT Medical History: Reports: None Neurological Medical History: Reports: None Endocrine Medical History: Reports: None Renal/ Medical History: Reports: Hx Ovarian Cysts - Right-sided Malignancy Medical History: Reports: Hx Breast Cancer - Right, diagnosed 15 months ago, treated with surgery and radiation GI Medical History: Reports: Hx Gastroesophageal Reflux Disease Musculoskeletal Medical History: Reports Hx Arthritis, Reports Hx Musculoskeletal Deformity Skin Medical History: Reports None Psychiatric Medical History: Reports: Hx Anxiety, Hx Bipolar Disorder, Hx Depression, Hx Schizophrenia Traumatic Medical History: Reports: None Past Surgical History: Reports: Hx Breast Surgery - right lumpectomy, Hx Orthopedic Surgery - back surgery - Immunizations Immunizations up to date: No Hx Diphtheria, Pertussis, Tetanus Vaccination: No - UNSURE Review of Systems - Review of Systems Constitutional: No symptoms reported EENT: Ear pain - Both ears clogged decreased hearing Cardiovascular: No symptoms reported Respiratory: No symptoms reported Gastrointestinal: No symptoms reported Genitourinary: No symptoms reported Female Genitourinary: No symptoms reported Musculoskeletal: No symptoms reported Skin: Lesions - Right labia and mons pubis Hematologic/Lymphatic: No symptoms reported Neurological/Psychological: No symptoms reported -: Yes All other systems reviewed and negative Physical Exam - Vital signs Vitals: Temp Pulse Resp BP Pulse Ox 98.2 F 80 18 131/72 H 100 05/22/18 16:31 05/22/18 16:31 05/22/18 16:31 05/22/18 16:31 05/22/18 16:31 Interpretation: Normal - General General appearance: Appears well, Alert - HEENT Head: Normocephalic, Atraumatic Eyes: Normal Pupils: PERRL Ears: Normal External canal: Cerumen impaction Tympanic membrane: Normal Sinus: Normal Nasal: Normal Mouth/Lips: Normal Mucous membranes: Normal Pharynx: Normal Neck: Normal - Respiratory Respiratory status: No respiratory distress Chest status: Nontender Breath sounds: Normal Chest palpation: Normal - Cardiovascular Rhythm: Regular Heart sounds: Normal auscultation Murmur: No - Abdominal Inspection: Normal Distension: No distension Bowel sounds: Normal Tenderness: Nontender Organomegaly: No organomegaly - Genitourinary External exam: Other - Small abscess to the mons pubis and right labia - Back Back: Normal, Nontender - Extremities General upper extremity: Normal inspection, Nontender, Normal color, Normal ROM, Normal temperature General lower extremity: Normal inspection, Nontender, Normal color, Normal ROM, Normal temperature, Normal weight bearing. No: Jessenia's sign - Neurological Neuro grossly intact: Yes Cognition: Normal Orientation: AAOx4 Kimbelri Coma Scale Eye Opening: Spontaneous Kimberli Coma Scale Verbal: Oriented [place] Coma Scale Motor: Obeys Commands Kimberli Coma Scale Total: 15 Speech: Normal Motor strength normal: LUE, RUE, LLE, RLE Sensory: Normal - Psychological Associated symptoms: Normal affect, Normal mood - Skin Skin Temperature: Warm Skin Moisture: Dry Skin Color: Normal Skin irregularity: Abscess Location of irregularity: Other - Mons pubis and right labia Irregularity with: Swelling, Tenderness, Warmth Course - Re-evaluation Re-evalutation: 05/22/18 21:41 Most of the wax removed from both ears. There does appear to be an insect in the left ear canal and it did not flush with the wax. Patient has been instructed to follow-up with ears nose and throat on Friday for removal of the bug. Patient states she is able to hear a lot better after removal of the wax. - Vital Signs Vital signs: Temp Pulse Resp BP Pulse Ox 98.2 F 79 16 135/89 H 97 05/22/18 19:26 05/22/18 19:26 05/22/18 19:26 05/22/18 19:05/22/18 19:26 Procedures - Incision and Drainage Right labia Time completed: 17:05 Type: Simple Anesthetic type: Other - None mL's of anesthetic: 0 Blade size: Other - 18-gauge I&D procedure: Shurclens applied Incision Method: Incision made with needle - 18-gauge Amount/type of drainage: Small amount purulent - Additional Procedures cerumen impaction removal Time performed: 19:25 Additional Procedures: Other - Colace instilled in each ear waited 30 minutes and then flushed with one half peroxide one half water. Most of wax removed from both ears Discharge - Discharge Clinical Impression: Folliculitis Cerumen impaction Qualifiers: Laterality: bilateral Qualified Code(s): H61.23 - Impacted cerumen, bilateral Condition: Stable Disposition: HOME, SELF-CARE Instructions: Family Physicians / Practices Additional Instructions: Folliculitis You have a skin infection called folliculitis. This occurs when bacteria infect the hair follicles of the skin. Typically, redness and small pustules are found where hair shafts enter the skin. Allergy, surface irritation, shaving, and exposure to hot tubs predispose to folliculitis. The usual treatment is antibiotic ointment, sometimes combined with cortisone-type medication. Warm compresses are often used. If the infection has moved deeper into the skin, oral antibiotics may be necessary. To avoid future episodes of folliculitis, you must identify (if possible) the factors which allowed this infection to start. If you develop increasing pain, swelling, fever, or red streaks, call the doctor or return for re-evaluation. Cerumen Impaction The physician found a severe buildup of earwax in your ear canal, called a cerumen impaction. A large plug of wax can cause earache, decreased hearing, or itching. It can even lead to infection of the outer ear. An impaction of earwax can be removed by the physician using special instruments, or can be irrigated out using a stream of water (often a little of both is required). Some less severe impactions are removed using ear drops that dissolve wax. In the future, don't get soap in your ear canal. Soap doesn't remove wax -- it simply hardens it in place. Don't use cotton swabs. These just push the wax into large clumps, where it doesn't flow out normally. Dust and smoke also contribute to wax buildup. Earwax softening drops are available without prescription, and can be used periodically. Contact the doctor if you develop decreased hearing, earache, drainage from the ear, or severe headache. Doxycycline Doxycycline (Vibramycin, Doryx) is an antibiotic of the tetracycline family. This type of drug is useful for infections of the respiratory tract and genital tract, and is sometimes used for intestinal infections. Unlike most tetracyclines, doxycycline can be taken with food. It is longer acting, and (usually) less prone to side effects than regular tetracycline. Tetracycline antibiotics can stain immature teeth and SHOULD NOT BE TAKEN BY CHILDREN, NURSING MOTHERS, OR WOMEN. Tetracyclines can make you more prone to sunburn. Abdominal cramping, nausea, and diarrhea are occasional side effects. Women may experience vaginal yeast infections. Call the doctor at once if you develop hives, itching, shortness of breath, or lightheadedness. Epsom Salt Soaks Soak the wound area in a container of warm epsom salt water. If you can't get the wound area into a bucket or haywadr, use a folded towel soaked in the epsom salt solution and apply to the area. Use clean hot tap water (about the temperature of a very warm bath), mixing in about one (1) teaspoon for every pint of water. Two gallon --> 16 teaspoons Epsom Salts One gallon --> 8 teaspoons Epsom Salts Two quarts --> 4 teaspoons Epsom Salts One quart --> 2 teaspoons Epsom Salts Soak the wound for about 20 minutes while gently moving it around in the water. Repeat this four (4) times a day. Acetaminophen Acetaminophen may be taken for pain relief or fever control. It's much safer than aspirin, offering a wider range of "safe" dosages. It is safe during . Some brand names are Tylenol, Panadol, Datril, Anacin 3, Tempra, and Liquiprin. Acetaminophen can be repeated every four hours. The following are maximum recommended dosages: WEIGHT Dose Drops Elixir Chewable(80mg) (LBS.) drprs=droppers tsp=teaspoon 6 40 mg .4 ml (1/2) 6-11 80 mg .8 ml (full) 1/2 tsp 1 tab 12-16 120 mg 1 1/2 drprs 3/4 tsp 1 1/2 tabs 17-23 160 mg 2 drprs 1 tsp 2 tabs 24-30 240 mg 3 drprs 1 1/2 tsp 3 tabs 30-35 320 mg 2 tsp 4 tabs 36-41 360 mg 2 1/4 tsp 4 1/2 tabs 42-47 400 mg 2 1/2 tsp 5 tabs 48-53 480 mg 3 tsp 6 tabs 54-59 520 mg 3 1/4 tsp 6 1/2 tabs 60-64 560 mg 3 1/2 tsp 7 tabs 65-70 600 mg 3 3/4 tsp 7 1/2 tabs 71-76 640 mg 4 tsp 8 tabs 77-82 720 mg 4 1/2 tsp 9 tabs 83-88 800 mg 5 tsp 10 tabs >89 pounds or adults 650 mg to 900 mg Acetaminophen can be repeated every four hours. Maximum daily dose not to exceed 4000 mg. These maximum recommended dosages are slightly higher than the dosages written on the product container, but these dosages are very safe and well below the toxic dosage for acetaminophen. Prescriptions: Doxycycline Hyclate 100 mg PO BID #14 capsule Forms: Elevated Blood Pressure Referrals: AGNES GODFREY MD [ACTIVE STAFF] - Follow up as needed
[2018-05-22] MEDS ORDERED: DOCUSATE SODIUM 100 MG CAPSULE RT_EAR ONE (17:18)
[2018-05-22 19:31] VITALS: BP 135/89
== END 2018-05-22 19:31 | disposition home or self-care (01) ==
LOC: ER 16:23
DX: H61.23 Impacted cerumen, bilateral (principal); L73.9 Follicular disorder, unspecified; N76.4 Abscess of vulva; L02.215 Cutaneous abscess of perineum; Z88.0 Allergy status to penicillin; Z87.891 Personal history of nicotine dependence; Z85.3 Personal history of malignant neoplasm of breast; Z92.3 Personal history of irradiation
CPT/HCPCS: 99283

== ENCOUNTER 2018-07-19 16:46 | Emergency (ER) | payer SELFPAY ==
[2018-07-19 16:51] VITALS: BP 136/86
[2018-07-19] MEDS ORDERED: HYDROCODONE/ACETAMINOPHEN 5-325 MG (6 TAB/ER DISP) PO PRN (18:16)
[2018-07-19] MEDS ORDERED: SULFAMETHOXAZOLE/TRIMETHOPRIM 800-160 MG TABLET PO ONE (18:16)
--- NOTE | 2018-07-19 18:21 | ER Document Report ---
HPI - HPI Patient complains to provider of: Sort abdomen, low back pain Time Seen by Provider: 07/19/18 17:45 Onset/Duration: Persistent Quality of pain: Achy Pain Level: 3 Context: Patient reports a flareup of her chronic low back pain for the past 3 to 4 days. Patient denies any new injury. Patient denies any fever or urinary symptoms. Patient denies any retention or incontinence. Patient additionally reports an open wound to her lower abdomen that is been there for the past month. Patient also reports a sore to her labial area. Patient denies any concerns about any STD. No history of MRSA. Associated Symptoms: Other - Low back pain, abdominal wound, labial tenderness. denies: Nonproductive cough, Fever Exacerbated by: Movement Relieved by: Denies Similar symptoms previously: Yes Recently seen / treated by doctor: No - ROS ROS below otherwise negative: Yes Systems Reviewed and Negative: Yes All other systems reviewed and negative - CONSTITUTIONAL Constitutional: DENIES: Fever, Chills - EENT EENT: DENIES: Sore Throat - NEURO Neurology: DENIES: Weakness - RESPIRATORY Respiratory: DENIES: Trouble Breathing, Coughing - GASTROINTESTINAL Gastrointestinal: DENIES: Abdominal Pain, Nausea - URINARY Urinary: DENIES: Dysuria, Urgency, Frequency - REPRODUCTIVE Reproductive: DENIES: : - MUSCULOSKELETAL Musculoskeletal: REPORTS: Back Pain. DENIES: Extremity pain - DERM Skin Problems: Open to Air - Wound to abdomen Notes: Sore to right labia Past Medical History - General Information source: Patient - Social History Smoking Status: Current Every Day Smoker Chew tobacco use (# tins/day): No Frequency of alcohol use: None Drug Abuse: Marijuana Lives with: Spouse/Significant other Family History: Reviewed & Not Pertinent Patient has suicidal ideation: No Patient has homicidal ideation: No - Past Medical History Cardiac Medical History: Reports: Hx Hypercholesterolemia Pulmonary Medical History: Reports: Hx Bronchitis Neurological Medical History: Reports: Other - TIA. Denies: Hx Cerebrovascular Accident, Hx Seizures Renal/ Medical History: Reports: Hx Ovarian Cysts - Right-sided. Denies: Hx Peritoneal Dialysis Malignancy Medical History: Reports: Hx Breast Cancer - Right, diagnosed 15 months ago, treated with surgery and radiation GI Medical History: Reports: Hx Gastroesophageal Reflux Disease Musculoskeletal Medical History: Reports Hx Arthritis, Reports Hx Musculoskeletal Deformity Psychiatric Medical History: Reports: Hx Anxiety, Hx Bipolar Disorder, Hx Depression, Hx Schizophrenia Past Surgical History: Reports: Hx Breast Surgery - right lumpectomy, Hx Gynecologic Surgery - ovarian cyst removal, Hx Orthopedic Surgery - back surgery - Immunizations Immunizations up to date: No Hx Diphtheria, Pertussis, Tetanus Vaccination: No - UNSURE Vertical Provider Document - CONSTITUTIONAL Agree With Documented VS: Yes Exam Limitations: No Limitations General Appearance: WD/WN, No Apparent Distress - INFECTION CONTROL TRAVEL OUTSIDE OF THE [place] IN LAST 30 DAYS: No - HEENT HEENT: Atraumatic, Normocephalic - NECK Neck: Normal Inspection - RESPIRATORY Respiratory: Breath Sounds Normal, No Respiratory Distress - CARDIOVASCULAR Cardiovascular: Regular Rate, Regular Rhythm - GI/ABDOMEN Gastrointestinal: Abdomen Soft, Abdomen Non-Tender, No Organomegaly, Normal Bowel Sounds Notes: Patient with an open wound to right lower abdomen, it is 1.5 cm diameter, no surrounding erythema, no purulent drainage, no fluctuance, no concern for cellulitis or abscess at this time. - REPRODUCTIVE Female Genitalia: Abnormal Inspection - Patient with erythematous rash to perineum and inguinal fold area, tender indurated area to right labia, no fluctuance - BACK Back: Abnormal Inspection - Lower lumbar tenderness, no step-off or deformity - MUSCULOSKELETAL/EXTREMETIES Musculoskeletal/Extremeties: JAY DOMINGO - NEURO Level of Consciousness: Awake, Alert, Appropriate Motor/Sensory: No Motor Deficit, No Sensory Deficit Notes: No saddle anesthesia, normal gait, no foot drop - DERM Integumentary: Warm, Dry, Rash - Perineum and inguinal folds, erythematous rash with scattered satellite lesions. negative: Abscess Adult Front & Back Diagram: 1 - Open wound to lower abdomen, no surrounding erythema Course - Re-evaluation Re-evalutation: 07/19/18 Patient with rash to perineum worrisome for candidiasis. Patient with tender indurated lesion to right labia, no fluctuance, no drainable abscess at this time. Patient does have an old appearing wound to the lower abdomen with no surrounding erythema, no concern for cellulitis or deeper abscess at this time. The patient presents with low back pain without signs of spinal cord compression, cauda equina syndrome, infection, aneurysm, or other serious etiology. The patient is neurologically intact. Given the extremely risk of these diagnoses further testing and evaluation for these possibilities does not appear to be indicated at this time. Patient has been instructed to return if the symptoms worsen or change in any way. - Vital Signs Vital signs: Temp Pulse Resp BP Pulse Ox 98.3 F 91 16 136/86 H 97 07/19/18 16:49 07/19/18 16:49 07/19/18 16:49 07/19/18 16:49 07/19/18 16:49 Discharge - Discharge Clinical Impression: Candidiasis, Wound of skin Low back pain Qualifiers: Chronicity: chronic Back pain laterality: midline Sciatica presence: without sciatica Qualified Code(s): M54.5 - Low back pain Condition: Stable Disposition: HOME, SELF-CARE Instructions: Dressing Instructions for Open Wounds ([facility]), Ice Packs ([facility]), Low Back Pain ([facility]), Oral Narcotic Medication ([facility]), Trimethoprim-Sulfa ([facility]) Additional Instructions: Return immediately for any new or worsening symptoms Followup with your primary care provider, call tomorrow to make a followup appointment Apply bacitracin ointment to wound and keep covered as it continues to heal Prescriptions: Clotrimazole [Antifungal] 1 applic TP BID PRN #113 cream..g. PRN Reason: Naproxen [Naprosyn 250 Nmg Tablet] 1 tab PO BID #14 tablet Sulfamethoxazole/Trimethoprim [Bactrim Ds Tablet] 1 each PO BID #20 tablet Forms: Smoking Cessation Education Referrals: [facility] [Provider Group] - Follow up as needed
== END 2018-07-19 18:27 | disposition home or self-care (01) ==
LOC: ER 16:46
DX: G89.29 Other chronic pain (principal); M54.5 Low back pain; B37.2 Candidiasis of skin and nail; S30.92XA Unspecified superficial injury of abdominal wall, initial encounter; X58.XXXA Exposure to other specified factors, initial encounter; F17.200 Nicotine dependence, unspecified, uncomplicated; E78.00 Pure hypercholesterolemia, unspecified; Z86.73 Personal history of transient ischemic attack (TIA), and cerebral infarction without residual deficits
CPT/HCPCS: 99283

== ENCOUNTER 2018-10-26 11:34 | Emergency (ER) | payer SELFPAY ==
--- NOTE | 2018-10-26 11:59 | ER Document Report ---
ED Medical Screen (RME) - General Chief Complaint: Abscess Stated Complaint: FALL/BACK PAIN Time Seen by Provider: 10/26/18 11:51 Notes: Patient is a 53-year-old female with history of bipolar, depression and anxiety who presents to emergency department with a chief complaint of a possible abscess and low back pain. Patient states last she was ambulating when she tripped over her feet causing her to land on her buttocks. Patient states she did land on grass. Patient states she does have degenerative disc disease in her back. Patient complains of lower back pain. Patient states she did not hit her head or have a loss of consciousness. Patient also complains of possible abscess to the left lower thigh and left buttocks. Patient states her did try to squeeze the abscess to the buttocks and did have pus expelled. Patient states she has a history of abscesses without MRSA. TRAVEL OUTSIDE OF THE [place] IN LAST 30 DAYS: No - Related Data Allergies/Adverse Reactions: Penicillins Allergy (Unknown, Verified 10/26/18 11:35) Past Medical History - Social History Frequency of alcohol use: None Drug Abuse: Marijuana - Past Medical History Cardiac Medical History: Reports: Hx Hypercholesterolemia Denies: Hx Coronary Artery Disease, Hx Heart Attack, Hx Hypertension Pulmonary Medical History: Reports: Hx Bronchitis Denies: Hx Asthma, Hx COPD - SOB WHEN LYING ON SIDE AND BENDING OVER, HAS A SMOKERS COUGH, Hx Pneumonia, Hx Tuberculosis Neurological Medical History: Denies: Hx Cerebrovascular Accident, Hx Seizures Renal/ Medical History: Reports: Hx Ovarian Cysts - Right-sided. Denies: Hx Peritoneal Dialysis Malignancy Medical History: Reports: Hx Breast Cancer - Right, diagnosed 15 months ago, treated with surgery and radiation GI Medical History: Reports: Hx Gastroesophageal Reflux Disease Musculoskeltal Medical History: Reports Hx Arthritis, Reports Hx Musculoskeletal Deformity Psychiatric Medical History: Reports: Hx Anxiety, Hx Bipolar Disorder, Hx Depression, Hx Schizophrenia Past Surgical History: Reports: Hx Breast Surgery - right lumpectomy, Hx Gynecologic Surgery - ovarian cyst removal, Hx Orthopedic Surgery - back surgery - Immunizations Immunizations up to date: No Hx Diphtheria, Pertussis, Tetanus Vaccination: No - UNSURE Physical Exam - Vital signs Vitals: Temp Pulse Resp BP Pulse Ox 98.4 F 70 20 129/68 H 99 10/26/18 11:48 10/26/18 11:48 10/26/18 11:48 10/26/18 11:48 10/26/18 11:48 - Back Notes: Lumbar midline spinal tenderness. There is no ecchymosis, edema or erythema noted. Course - Re-evaluation Re-evalutation: 10/26/18 11:58 Patient will require more thorough assessment of the reported abscesses to the buttocks and thigh and more private area. I have greeted and performed a rapid initial assessment of this patient. A comprehensive ED assessment and evaluation of the patient, analysis of test results and completion of the medical decision making process will be conducted by additional ED providers. - Vital Signs Vital signs: Temp Pulse Resp BP Pulse Ox 98.4 F 70 20 129/68 H 99 10/26/18 11:48 10/26/18 11:48 10/26/18 11:48 10/26/18 11:48 10/26/18 11:48
--- NOTE | 2018-10-26 12:22 | RADIOLOGY REPORT (SQ) ---
EXAM DESCRIPTION: L SPINE WHOLE COMPLETED DATE/TIME: 10/26/2018 12:14 pm REASON FOR STUDY: FALL, MIDLINE SPINAL PAIN COMPARISON: 09/08/2009. NUMBER OF VIEWS: Five views including obliques. TECHNIQUE: AP, lateral, oblique, and sacral radiographic images acquired of the lumbar spine. LIMITATIONS: None. FINDINGS: MINERALIZATION: Normal. SEGMENTATION: Normal. No transitional anatomy. ALIGNMENT: Normal. VERTEBRAE: Maintained height. No fracture or worrisome bone lesion. DISCS: Mild disc space narrowing with small osteophytes. POSTERIOR ELEMENTS: Pedicles and facets are intact. No pars defect or posterior arch defects. HARDWARE: None in the spine. PARASPINAL SOFT TISSUES: Normal. PELVIS: Intact as visualized. No fractures or worrisome bone lesions. SI joints intact. OTHER: No other significant finding. IMPRESSION: MILD DEGENERATIVE CHANGES. NO ACUTE FINDINGS. TECHNICAL DOCUMENTATION: JOB ID: [id number]- All Rights Reserved Reading location - IP/workstation name: [email or web address]
--- NOTE | 2018-10-26 13:02 | ER Document Report ---
ED General - General Chief Complaint: Abscess Stated Complaint: FALL/BACK PAIN Time Seen by Provider: 10/26/18 11:51 Notes: 83-year-old lady presents with low back pain after a fall tripped over her feet fell backwards on her back on the grass. History of back issues. This was 4 days ago. She is taking Motrin and says is not helping. No radiation down the leg no numbness or tingling. No other injuries. Also complains of sore on her left thigh and left buttock no drainage no fever. TRAVEL OUTSIDE OF THE [place] IN LAST 30 DAYS: No - Related Data Allergies/Adverse Reactions: Penicillins Allergy (Unknown, Verified 10/26/18 11:35) Past Medical History - Social History Smoking Status: Current Every Day Smoker Frequency of alcohol use: None Drug Abuse: Marijuana Family History: Reviewed & Not Pertinent Patient has suicidal ideation: No Patient has homicidal ideation: No - Past Medical History Cardiac Medical History: Reports: Hx Hypercholesterolemia Denies: Hx Coronary Artery Disease, Hx Heart Attack, Hx Hypertension Pulmonary Medical History: Reports: Hx Bronchitis Denies: Hx Asthma, Hx COPD - SOB WHEN LYING ON SIDE AND BENDING OVER, HAS A SMOKERS COUGH, Hx Pneumonia, Hx Tuberculosis Neurological Medical History: Denies: Hx Cerebrovascular Accident, Hx Seizures Renal/ Medical History: Reports: Hx Ovarian Cysts - Right-sided. Denies: Hx Peritoneal Dialysis Malignancy Medical History: Reports: Hx Breast Cancer - Right, diagnosed 15 months ago, treated with surgery and radiation GI Medical History: Reports: Hx Gastroesophageal Reflux Disease Musculoskeletal Medical History: Reports Hx Arthritis, Reports Hx Musculoskeletal Deformity Psychiatric Medical History: Reports: Hx Anxiety, Hx Bipolar Disorder, Hx Depression, Hx Schizophrenia Past Surgical History: Reports: Hx Breast Surgery - right lumpectomy, Hx Gynecologic Surgery - ovarian cyst removal, Hx Orthopedic Surgery - back surgery - Immunizations Immunizations up to date: No Hx Diphtheria, Pertussis, Tetanus Vaccination: No - UNSURE Review of Systems - Review of Systems Notes: REVIEW OF SYSTEMS GEN: Denies fever, chills, weight loss ENT: Denies sore throat, nasal discharge, ear pain EYES: Denies blurry vision, eye pain, discharge CV: Denies chest pain, palpitations, edema RESP: Denies cough, shortness of breath, wheezing GI: Denies abdominal pain, nausea, vomiting, diarrhea MSK: Back pain SKIN: Denies rash, skin lesions LYMPH: Denies swollen glands/lymph nodes NEURO: Denies headache, focal weakness or numbness, dizziness PSYCH: Denies depression, suicidal or homicidal ideation PHYSICAL EXAMINATION General: No acute distress, well-nourished Head: Atraumatic, normocephalic ENT: Mouth normal, oropharynx moist, no exudates or tonsillar enlargement Eyes: Conjunctiva normal, pupils equal, lids normal Neck: No JVD, supple, no guarding CVS: Normal rate, regular rhythm, no murmurs Resp: No resp distress, equal and normal breath sounds bilaterally GI: Nondistended, soft, no tenderness to palpation, no rebound or guarding Ext: No deformities, no edema, normal range of motion in upper and lower ext Back: No CVA or midline TTP. No apparent discomfort. Midline scar old. Skin: No rash, warm small furuncles of the left thigh and right buttock without fluctuance, 3 x 3 cm each Lymphatic: No lymphadeopathy noted Neuro: Awake, alert. Face symmetric. GCS 15. Physical Exam - Vital signs Vitals: Temp Pulse Resp BP Pulse Ox 98.4 F 70 20 129/68 H 99 10/26/18 11:48 10/26/18 11:48 10/26/18 11:48 10/26/18 11:48 10/26/18 11:48 Course - Re-evaluation Re-evalutation: 10/26/18 13:22 Fall on low back without neuro deficits. X-ray is normal. Do not suspect fracture or occult fracture based on physical examination. Recommended ibuprofen and will add muscle relaxer. The 2 furuncles do not need to be drained today but will placed on antibiotics and warned that they may mature into drainable abscesses. I have discussed with the patient there likely diagnosis, aftercare plan, follow-up plans and my usual and customary return precautions. They verbalized understanding of this. - Vital Signs Vital signs: Temp Pulse Resp BP Pulse Ox 98.4 F 65 16 133/96 H 100 10/26/18 13:06 10/26/18 13:06 10/26/18 13:06 10/26/18 13:06 10/26/18 13:06 Discharge - Discharge Clinical Impression: Back spasm, Furuncle Condition: Good Disposition: HOME, SELF-CARE Instructions: MRSA Cellulitis ([facility]), Upper Back Strain ([facility]) Prescriptions: Methocarbamol [Robaxin 500 mg Tablet] 500 mg PO Q8HP PRN #17 tablet PRN Reason: Doxycycline Hyclate 100 mg PO BID #14 capsule
[2018-10-26 13:12] VITALS: BP 133/96
== END 2018-10-26 13:10 | disposition home or self-care (01) ==
LOC: ER 11:34
DX: M62.830 Muscle spasm of back (principal); L02.32 Furuncle of buttock; L02.426 Furuncle of left lower limb; M54.5 Low back pain; W01.0XXA Fall on same level from slipping, tripping and stumbling without subsequent striking against object, initial encounter; F17.200 Nicotine dependence, unspecified, uncomplicated
CPT/HCPCS: 72110; 99283

== ENCOUNTER 2020-03-05 10:05 | Emergency (ER) | payer SELFPAY ==
[2020-03-05 10:24] VITALS: BP 142/85
[2020-03-05] MEDS ORDERED: SULFAMETHOXAZOLE/TRIMETHOPRIM 800-160 MG TABLET PO ONE (11:18)
[2020-03-05] MEDS ORDERED: HYDROCODONE/ACETAMINOPHEN 5-325 MG (6 TAB/ER DISP) PO PRN (11:18)
[2020-03-05] MEDS ORDERED: ONDANSETRON ODT 4 MG TAB (6 TAB/ER DISP) PO PRN (11:18)
--- NOTE | 2020-03-05 11:25 | ER Document Report ---
HPI - HPI Time Seen by Provider: 03/05/20 10:56 Pain Level: 5 Context: Patient is a 54-year-old female who presents emergency department with abscess to her head and neck. Patient ports that she has had these for a few weeks. Patient also reports that she has had lice for about a year now. Reports that she does scratch her head. Denies any fever, body aches, or chills. - ROS Systems Reviewed and Negative: Yes All other systems reviewed and negative - CONSTITUTIONAL Constitutional: DENIES: Fever, Chills - NEURO Neurology: DENIES: Headache - RESPIRATORY Respiratory: DENIES: Trouble Breathing, Coughing - REPRODUCTIVE Reproductive: DENIES: : - MUSCULOSKELETAL Musculoskeletal: DENIES: Extremity pain - DERM Skin Color: Normal Skin Problems: Pustule - See HPI. Past Medical History - General Information source: Patient - Social History Smoking Status: Current Every Day Smoker Chew tobacco use (# tins/day): No Frequency of alcohol use: None Drug Abuse: Marijuana Family History: Reviewed & Not Pertinent Patient has homicidal ideation: No - Past Medical History Cardiac Medical History: Reports: Hx Hypercholesterolemia Denies: Hx Coronary Artery Disease, Hx Heart Attack, Hx Hypertension Pulmonary Medical History: Reports: Hx Bronchitis Denies: Hx Asthma, Hx COPD - SOB WHEN LYING ON SIDE AND BENDING OVER, HAS A SMOKERS COUGH, Hx Pneumonia, Hx Tuberculosis Neurological Medical History: Denies: Hx Cerebrovascular Accident, Hx Seizures Renal/ Medical History: Reports: Hx Ovarian Cysts - Right-sided. Denies: Hx Peritoneal Dialysis Malignancy Medical History: Reports: Hx Breast Cancer - Right, diagnosed 15 months ago, treated with surgery and radiation GI Medical History: Reports: Hx Gastroesophageal Reflux Disease Musculoskeletal Medical History: Reports Hx Arthritis, Reports Hx Musculoskeletal Deformity Psychiatric Medical History: Reports: Hx Anxiety, Hx Bipolar Disorder, Hx Depression, Hx Schizophrenia Past Surgical History: Reports: Hx Breast Surgery - right lumpectomy, Hx Gynecologic Surgery - ovarian cyst removal, Hx Orthopedic Surgery - back surgery - Immunizations Immunizations up to date: No Hx Diphtheria, Pertussis, Tetanus Vaccination: No - UNSURE Vertical Provider Document - CONSTITUTIONAL Agree With Documented VS: Yes Exam Limitations: No Limitations General Appearance: No Apparent Distress - INFECTION CONTROL TRAVEL OUTSIDE OF THE [place] IN LAST 30 DAYS: No - HEENT HEENT: Atraumatic, Normocephalic Notes: Multiple abscesses noted to scalp. See procedure note - NECK Neck: Normal Inspection - RESPIRATORY Respiratory: No Respiratory Distress - CARDIOVASCULAR Cardiovascular: Regular Rhythm Pulses: Normal: Radial - MUSCULOSKELETAL/EXTREMETIES Musculoskeletal/Extremeties: FROM - NEURO Level of Consciousness: Awake, Alert, Appropriate Motor/Sensory: No Motor Deficit, No Sensory Deficit - DERM Integumentary: Warm, Dry, Abscess - See procedure note; lice noted to hair Course - Re-evaluation Re-evalutation: 03/05/20 11:[address] the patient on Bactrim. All abscesses have been drained on their own, other than the one to the back of her right neck. See procedure note. Advised the patient to start [id number] lice treatment after she finishes her antibiotics. She is in agreement with this plan. She will follow up with her primary care provider. Follow-up precautions were given. Verbal discharge instructions were given to the patient. They verbalized understanding. They are stable for discharge. - Vital Signs Vital signs: Temp Pulse Resp BP Pulse Ox 97.7 F 101 H 20 142/85 H 99 03/05/20 10:20 03/05/20 10:20 03/05/20 10:20 03/05/20 10:20 03/05/20 10:20 - Laboratory Results Critical Laboratory Results Reviewed: No Critical Results - Radiology Results Critical Radiology Results Reviewed: No Critical Results Procedures - Incision and Drainage Right neck Type: Simple, Single Incision Method: Incision made with needle - see note (not incision) Amount/type of drainage: Purulent/3 mL Notes: 03/05/20 11:24 I was able to squeeze purulent drainage out of the neck abscess. The other abscesses on top of the head and to the left ear were already draining on her own. Adult Head Front/Back picture: 1 - Abscess 2 - Abscess 3 - Abscess 4 - Abscess Discharge - Discharge Clinical Impression: Abscess of head, Abscess of neck, Lice infestation Condition: Stable Disposition: HOME, SELF-CARE Instructions: Trimethoprim-Sulfa ([facility]) Additional Instructions: You were seen today in the emergency department for abscesses to your head and neck. Take your antibiotics as prescribed. Follow-up with your primary care provider in regards to this visit. After your antibiotic treatment, use the [id number] lice treatment to treat your lice. Prescriptions: Sulfamethoxazole/Trimethoprim [Bactrim Ds Tablet] 1 each PO BID 7 Days #14 tablet Metoclopramide HCl [Reglan 10 mg Tablet] 1 - 2 tab PO ASDIR PRN #25 tablet PRN Reason: Referrals: [facility] [Provider Group] - Follow up in 1 week
== END 2020-03-05 11:53 | disposition home or self-care (01) ==
LOC: ER 10:05
DX: L02.11 Cutaneous abscess of neck (principal); L02.811 Cutaneous abscess of head [any part, except face]; B85.2 Pediculosis, unspecified; F17.200 Nicotine dependence, unspecified, uncomplicated; F12.10 Cannabis abuse, uncomplicated; Z85.3 Personal history of malignant neoplasm of breast
CPT/HCPCS: 87070; 87075; 87077; 87186; 87205; 99283